=== PATIENT | female | born 2000 | race Caucasian/White ===

== ENCOUNTER 2020-12-24 01:26 | Emergency (ER) | payer OTHER, SELFPAY ==
--- NOTE | ~2020-12-24 | XR_ITS ---
EXAMINATION: XR knee RT 3V DATE: 12/24/2020 01:47 INDICATION: Right knee pain post fall TECHNIQUE: Anteroposterior, oblique and crosstable lateral views of the right knee were obtained COMPARISON: None. FINDINGS: Alignment is normal. No fracture. No joint effusion/layering lipohemarthrosis. Soft tissues are unre markable. IMPRESSION: 1. Negative right knee radiographs. Reviewed, dictated and finalized at location A. [facility] RES[facility]SE CONSULTANT
[2020-12-24 01:31] VITALS: BP 108/65; PULSE 71; RESP 16; TEMP 36.8; O2SAT 100
--- NOTE | 2020-12-24 01:48 | ED.LOWEXIN ---
HPI - Extremity Injury (Lower) General Chief Complaint: Extremity Injury, Lower Stated Complaint: rt knee pain s/p fall Time Seen by Provider: 12/24/20 01:30 Source: patient and EMS Mode of arrival: EMS Limitations: no limitations History of Present Illness HPI Narrative: 20-year-old female came into the emergency department via EMS for right knee pain. 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 Patient denies any falls or other injuries. She has not taken any medications yet. Patient is still able to move her knee but states that she does have some slight pain associated with movement. Review of Systems Review of Systems: Narrative: CONSTITUTIONAL: Denies fever, chills, or sweats. EYES: Denies visual changes, redness, or discharge. ENT: Denies rhinorrhea, congestion, sore throat, or otalgia. CARDIOVASCULAR: Denies chest pain, palpitations, or edema. RESPIRATORY: Denies cough or dyspnea. GASTROINTESTINAL: Denies abdominal pain, nausea, vomiting, or diarrhea. GENITOURINARY: Denies dysuria or hematuria. SKIN: Denies rash or itching. MUSCULOSKELETAL: Denies back pain, joint pain, or myalgia. Endorses right knee pain NEUROLOGIC: Denies headache, numbness, dizziness, or weakness. PSYCHIATRIC: Denies anxiety or depression. Exam Narrative: Exam Narrative: GENERAL: Obese, well-appearing, well-nourished, and in no acute distress. HEAD: Normocephalic, atraumatic. EYES: PERRLA and EOMI. ENT: Nares clear, no rhinorrhea or epistaxis. Mucous membranes moist. NECK: Supple. No adenopathy or masses. No carotid bruits or JVD CHEST: Clear to auscultation. No respiratory distress. No wheezes rales or rhonchi HEART: Regular rate and rhythm. No murmur heard. Normal peripheral pulses. ABDOMEN: Soft, nontender, nondistended, normal active bowel sounds. EXTREMITIES: Normal range of motion. No edema. Tenderness to palpation of the right knee SKIN: Warm, dry, no rash. NEURO: No focal deficits. Alert and oriented x3. PSYCH: Normal mood and affect. Course Vital Signs Vital signs: Vital Signs Temperature 36.8 C 02/25/21 01:31 Pulse Rate 71 12/24/20 01:31 Respiratory Rate 16 12/24/20 01:31 Blood Pressure 108/65 12/24/20 01:31 Pulse Oximetry 100 12/24/20 01:31 Temperature 36.8 C 12/24/20 01:31 Pulse Rate 71 12/24/20 01:31 Respiratory Rate 16 12/24/20 01:31 Blood Pressure 108/65 12/24/20 01:31 Pulse Oximetry 100 12/24/20 01:31 MDM - Extremity Injury (Lower) MDM Narrative Medical decision making narrative: In brief this 20-year-old female came into the emergency department with complaints of right knee pain. She had an x-ray. This was found to be within normal limits showing no fractures or dislocations. Based on the patient's history and physical exam findings I feel she likely has a sprain of the knee. Patient given an Constantino wrap and ice pack. She is given precautions to take it easy for the next couple of days and recommended that she follow-up with her primary care physician. Differential Diagnosis Differential diagnosis: Likely ankle sprain and strain, acute internal derangement of knee, fracture of femur, puncture wound of foot, fracture of toe and other (Patellar or knee dislocation) Discharge Plan Discharge Clinical Impression: Right knee sprain Qualifiers: Encounter type: initial encounter Involved ligament of knee: unspecified ligament Qualified Code(s): S83.91XA - Sprain of unspecified site of right knee, initial encounter Patient Disposition: Home, Self-Care Condition: Improved Instructions: Knee Sprain (ED) Additional Instructions: Rest ice and elevate your knee when you can. Use a brace while at work. Take acetaminophen, ibuprofen or naproxen as needed for pain relief. Follow-up/Referrals: Philip Perez DO [Physician] - Time of Disposition: 02:35
[2020-12-24] MEDS: IBUPROFEN 400 MG TABLET 800 MG PO (01:56)
--- NOTE | 2020-12-24 02:06 | PC.NURSE ---
lucy wrap applied to right knee area. pt liliana well.
[2020-12-24 02:54] VITALS: BP 112/76; PULSE 76; RESP 16; TEMP 36.8; O2SAT 100
== END 2020-12-24 02:55 | disposition home or self-care (01) ==
LOC: ANHED 02:54
PROVIDERS: Emergency Provider Emergency Medicine
DX: S83.91XA Sprain of unspecified site of right knee, initial encounter (principal); X50.9XXA Other and unspecified overexertion or strenuous movements or postures, initial encounter
CPT/HCPCS: 73562; 99283; A9270

== ENCOUNTER 2024-12-02 14:57 | Emergency (ER) | payer OTHER, MEDICAID, SELFPAY ==
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
[2024-12-02 15:18] VITALS: BP 154/79; PULSE 77; RESP 18; TEMP 36.3; O2SAT 99
--- OUTSIDE RECORDS SUMMARY | 2024-12-02 15:51 | XMS_ITS | Encounter Summary ---
Author Organization [facility] Address [address] [place] [address] Care Team Providers Care Rn Patient Care Name Role Phone Katrina Ag DO Primary Care Provider [phone] Encounter Details Date Type Department Care Team (Latest Contact Info) Description 11/08/2005 Outpatient Historical [facility] Chadwick Chen COUGH (Primary Dx) Social History Tobacco Use Types Packs/Day Years Used Date Smoking Tobacco: Never Assessed Comments Unknown Sex and Gender Information Value Date Recorded Sex Assigned at Not on file Legal Sex Female 3:23 AM [employer] Gender Identity Not on file Sexual Orientation Not on file documented as of this encounter Plan of Treatment Not on file documented as of this encounter Visit Diagnoses Diagnosis Cough- Primary documented in this encounter Additional Health Concerns Infection Onset Date Last Indicated Resolved Time R/O COVID-19 04/28/2020 04/28/2020 04/28/2020 3:00 AM CDT R/O COVID-19 09/29/2020 09/29/2020 09/30/2020 12:2 3 AM [employer] R/O COVID-19 02/11/2024 02/11/2024 02/11/2024 7:28 AM CDT documented as of this encounter Care Teams Rn Patient Care Relationship Specialty [place] [id number] [facility] [address] [place] [id number] PCP - General Internal Medicine 02/26/24 documented as of this encounter
--- OUTSIDE RECORDS SUMMARY | 2024-12-02 15:51 | XMS_ITS | Patient Health Summary ---
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 21-50(A) None Seen, 0-5 # /hpf 07/30/2018 5:22 AM CDT [facility] Bacteria UA 2+(A) None Seen 07/30/2018 5:22 AM CDT [facility] Squamous Epithelial Cells 3-5 None Seen, 0-2, 3-5 /hpf 07/30/2018 5:22 AM CDT [facility] Mucus UA 2+ /LPF 07/30/2018 5:22 AM CDT [facility] Urine URINE SPECIMEN OBTAINED BY CLEAN CATCH PROCEDURE / Unknown Collection / Unknown 07/30/2018 4:58 AM CDT 07/30/2018 5:08 AM CDT Narrative [facility] - 07/30/2018 5:22 AM CDT Larry Caro MD LAB - URINALYSIS ORD ERABLES [facility] [address] [place] [address] * (ABNORMAL) URINALYSIS REFLEX MICROSCOPIC REFLEX CULTURE (07/30/2018 4:58 AM CDT) Only the most recent of2 resultswithin the time period is included. Color UA Yellow Straw, Yellow 07/30/2018 5:16 AM CDT [facility] Clarity UA Slt Cloudy(A) Clear 07/30/2018 5:16 AM CDT [facility] Glucose UA Negative Negative 07/30/2018 5:16 AM CDT [facility] Bilirubin UA Negative Negative 07/30/2018 5:16 AM CDT [facility] Ketone UA Negative Negative 07/30/2018 5:16 AM CDT [facility] Specific [place] UA 1.026 1.005 - 1.030 07/30/2018 5:16 AM CDT [facility] Blood UA Negative Negative 07/30/2018 5:16 AM CDT [facility] pH UA 6.0 5.0 - 8.0 pH 07/30/2018 5:16 AM CDT [facility] Protein UA Negative Negative 07/30/2018 5:16 AM CDT [facility] Urobilinogen UA Negative Negative mg/dL 07/30/2018 5:16 AM CDT [facility] Nitrite UA Positive(A) Negative 07/30/2018 5:16 AM CDT [facility] Leukocyte UA 1+(A) Negative 07/30/2018 5:16 AM CDT [facility] Urine Microscopy Urine microscopy to follow 07/30/2018 5:16 AM CDT [facility] Reflex Status Culture to follow 07/30/2018 5:16 AM CDT [facility] Urine URINE SPECIMEN OBTAINED BY CLEAN CATCH PROCEDURE / Unknown Collection / Unknown 07/30/2018 4:58 AM CDT 07/30/2018 5:08 AM CDT Narrative [facility] - 07/30/2018 5:16 AM CDT Larry Caro MD LAB - URINALYSIS ORD ERABLES [facility] [address] [place] [address] * (ABNORMAL) CULTURE URINE (07/30/2018 4:58 AM CDT) Only the most recent of4 resultswithin the time period is included. Culture Urine >100,000 CFU/mL Klebsiella pneumoniae(A) GINGER 08/02/2018 8:37 AM CDT [facility] MICRO[facility]OLOG[facility] Urine URINE SPECIMEN OBTAINED BY CLEAN CATCH PROCEDURE / Unknown Collection / Unknown 07/30/2018 4:58 AM CDT 07/30/2018 5:08 AM CDT Narrative Organism Antibiotic Method Susceptibility Klebsiella pneumoniae Amikacin GINGER <=2 ug/mL: Susceptible Klebsiella pneumoniae Ampicillin-sulbactam GINGER 4 ug/mL: Susceptible Klebsiella pneumoniae Cefazolin GINGER <=4 ug/mL: Susceptible Klebsiella pneumoniae Cefepime GINGER <=1 ug/mL: Susceptible Klebsiella pneumoniae Ceftriaxone GINGER <=1 ug/mL: Susceptible Klebsiella pneumoniae Ciprofloxacin IGNGER <=0.25 ug/mL: Susceptible Klebsiella pneumoniae Extended-Spectrum Beta-Lactamase GINGER NEG ug/mL: Neg Klebsiella pneumoniae Gentamicin GINGER 8 ug/mL: Intermediate Klebsiella pneumoniae Meropenem GINGER <=0.25 ug/mL: Susceptible Klebsiella pneumoniae Nitrofurantoin GINGER 64 ug/mL: Intermediate Klebsiella pneumoniae Piperacillin-tazobactam GINGER <=4 ug/mL: Susceptible Klebsiella pneumoniae Tobramycin GINGER <=1 ug/mL: Susceptible Klebsiella pneumoniae Trimethoprim-sulfa methoxaz ole GINGER <=20 ug/mL: Susceptible Comment: Interpretive criteria are for cefazolin when cefazolin is used for therapy of uncomplicated UTI due to E. coli, K. pneumoniae, and P. mirabilis. May also be used to predict results for the oral agents cefaclor, cefdinir, cefpodoxime, cefprozil, cefuroxime, cephalexin, and lorcarbef when used to treat uncomplicated UTI due to E. coli, K. pneumoniae, and P. mirabilis. Larry Caro MD LAB - MICROBIOLOGY O RDERABLES [facility] MICROBIOLOGY [address] [place] [address], [facility] [phone] * NT-PRO BNP (07/30/2018 3:32 AM CDT) NT-proBNP 11.0 <300.0 pg/mL 07/30/2018 3:56 AM CDT [facility] Blood BLOOD SPECIMEN / Unknown Venipuncture / Unknown 07/30/2018 3:32 AM CDT 07/30/2018 3:34 AM CDT [facility] - 07/30/2018 3:56 AM CDT NT-proBNP Patient Age ? Acute HF Unlikely ? Acute HF Likely <50 years ? <300 pg/mL ? >450 pg/mL 50-75 years ?<300 pg/mL ? >900 pg/mL >75 years ? <300 pg/mL ? >1800 pg/mL Reference: MARGO Doyle et al. ICON Study. Heart Journal (2006) 27, [phone]- [phone] Both BNP and NT-proBNP derive from the precursor molecule called proBNP which is secreted from the ventricles in response to ventricle volume expansion and/or pressure overload. The secreted proBNP is subsequently cleaved by enzymes to form BNP, the active hormone and NT-proBNP an inactive metabolite. NT-proBNP has a longer half-life of 1.5-2.0 hours verses BNP with a half-life of 20 min for BNP. Both are useful biomarkers of ventricular distension due to increased intracardiac pressure. Both BNP and NT-proBNP increase with age and renal insufficiency. Increased concentrations of NT-proBNP have also been observed in the setting of acute myocardial infarction, right ventricular failure, valvular heart disease, and atrial fibrillation. Larry Caro MD LAB - CHEMISTRY ARCHIE GRIGSBY Performing Organization Address [facility] Co de Phone Number [facility] [address] [place] [address] * TROPONIN I (07/30/2018 3:32 AM CDT) [facility] Troponin I <0.015 0.000 - 0.049 ng/mL 07/30/2018 3:56 AM CDT [facility] Blood BLOOD SPECIMEN / Unknown Venipuncture / Unknown 07/30/2018 3:32 AM CDT 07/30/2018 3:34 AM CDT Narrative [facility] - 07/30/2018 3:56 AM CDT Note: Diagnosis of myocardial infarction requires symptoms of ischemia or EKG changes of ischemia and Troponin I >99th of normal (0.05 ng/mL). Troponin should be drawn on initial assessment and 3-6 hours later as clinically indicated. Any condition resulting in myocardial cell damage can increase cardiac troponin levels. In addition to myocardial infarction, these include but are not limited to congestive heart failure (CHF), arrhythmia, myocarditis, and non-cardiac related causes such as pulmonary embolism, renal failure and sepsis. Larry Caro MD LAB - CHEMISTRY ARCHIE GRIGSBY Performing Organization Address [facility] de Phone Number [facility] [address] [place] [address] * D-DIMER (07/30/2018 3:32 AM CDT) [facility] D-Dimer 0.23 0.17 - 0.5 mg/L FEU 07/30/2018 4:00 AM CDT [facility] Blood BLOOD SPECIMEN / Unknown Venipuncture / Unknown 07/30/2018 3:32 AM CDT 07/30/2018 3:34 AM CDT Narrative [facility] - 07/30/2018 4:00 AM CDT The [employer] D-Dimer assay is intended for use as an aid in diagnosis of venous thromboembolism [(VTE): deep vein thrombosis (DVT), pulmonary embolism (PE), and disseminated intravascular coagulation (DIC)], and has received U.S. Food and Drug Administration (FDA) approval to exclude VTE in patients with low or moderate pretest probability of PE or DVT (per Wells' rules). At a clinical cut-off value 0.50 mg/L FEU, the Negative Predictive Value of this assay is 99.8% for excluding PE and 100% for excluding DVT. A very low percentage of patients with VTE may yield D-Dimer results below the cut-off value. An elevated D-Dimer result has low specificity (40.4% for PE, 35.5% for DVT) and is a poor predictor of VTE. An elevated D-Dimer result may indicate DIC in the appropriate clinical setting. Results of this test should always be interpreted in conjunction with the patient's medical history, clinical presentation, and other findings. Larry Caro MD LAB - COAGULATION OR DERABLES Performing Organization Address City/State/[facility] Co de Phone Number [facility] [address] [place] [address] * (ABNORMAL) CBC W AUTO DIFFERENTIAL (07/30/2018 3:32 AM CDT) Only the most recent of6 resultswithin the time period is included. WBC 8.0 4.5 - 11.0 x10E9/L 07/30/2018 3:48 AM CDT [facility] WBC Corrected x10E9/L 07/30/2018 3:48 AM CDT [facility] RBC 4.79 4.10 - 5.10 x10E12/L 07/30/2018 3:48 AM CDT [facility] Hemoglobin 13.0 12.0 - 16.0 gm/dL 07/30/2018 3:48 AM CDT [facility] Hematocrit 39.7 36.0 - 47.0 % 07/30/2018 3:48 AM CDT [facility] MCV 82.9 78.0 - 102.0 fl 07/30/2018 3:48 AM CDT [facility] MCH 27.1 25.0 - 35.0 pg 07/30/2018 3:48 AM CDT [facility] MCHC 32.7 31.0 - 37.0 gm/dL 07/30/2018 3:48 AM CDT [facility] Platelet Count 299 100 - 400 x10E9/L 07/30/2018 3:48 AM CDT [facility] RDW-CV 13.0 11.5 - 14.0 % 07/30/2018 3:48 AM CDT [facility] MPV 9.8(H) 6.0 - 9.5 fl 07/30/2018 3:48 AM CDT [facility] Neutrophils % 59.9 31.0 - 78.0 % 07/30/2018 3:48 AM CDT [facility] Lymphocytes % 26.7 13.0 - 54.0 % 07/30/2018 3:48 AM CDT [facility] Monocytes % 10.5 4.0 - 13.0 % 07/30/2018 3:48 AM CDT [facility] Eosinophils % 2.1 0.0 - 8.0 % 07/30/2018 3:48 AM CDT [facility] Basophils % 0.4 % 07/30/2018 3:48 AM CDT [facility] Immature Granulocytes 0.4 % 07/30/2018 3:48 AM CDT [facility] Neutrophil Absolute 4.78 x10E9/L 07/30/2018 3:48 AM CDT [facility] Lymphocytes Absolute 2.13 x10E9/L 07/30/2018 3:48 AM CDT [facility] Monocytes Absolute 0.84 x10E9/L 07/30/2018 3:48 AM CDT [facility] Eosinophils Absolute 0.17 x10E9/L 07/30/2018 3:48 AM CDT [facility] Basophils Absolute 0.03 x10E9/L 07/30/2018 3:48 AM CDT [facility] Immature Granulocytes Absolute 0.03 x10E9/L 07/30/2018 3:48 AM CDT [facility] nRBC Auto 0 /100 WBC 07/30/2018 3:48 AM CDT [facility] Blood BLOOD SPECIMEN / Unknown Venipuncture / Unknown 07/30/2018 3:32 AM CDT 07/30/2018 3:34 AM CDT Larry Caro MD LAB - HEMATOLOGY ORD ERABLES [facility] [address] [place] [address] * (ABNORMAL) COMPREHENSIVE METABOLIC PANEL (07/30/2018 3:32 AM CDT) Only the most recent of6 resultswithin the time period is included. [facility] Glucose 80 74 - 106 mg/dL 07/30/2018 3:56 AM CDT [facility] Sodium 137 136 - 145 mmol/L 07/30/2018 3:56 AM CDT [facility] Potassium 3.8 3.5 - 5.1 mmol/L 07/30/2018 3:56 AM CDT [facility] Chloride 104 98 - 107 mmol/L 07/30/2018 3:56 AM CDT [facility] CO2 27 20 - 28 mmol/L 07/30/2018 3:56 AM CDT [facility] Calcium 8.4(L) 8.5 - 10.1 mg/dL 07/30/2018 3:56 AM CDT [facility] Anion Gap 6(L) 8 - 16 mmol/L 07/30/2018 3:56 AM CDT [facility] BUN 13 7 - 21 mg/dL 07/30/2018 3:56 AM CDT [facility] Creatinine 0.82 0.50 - 1.30 mg/dL 07/30/2018 3:56 AM CDT [facility] Alkaline Phosphatase 95 38 - 126 U/L 07/30/2018 3:56 AM CDT [facility] ALT 37 13 - 61 U/L 07/30/2018 3:56 AM CDT [facility] AST 25 5 - 40 U/L 07/30/2018 3:56 AM CDT [facility] Protein Total 7.3 6.4 - 8.2 gm/dL 07/30/2018 3:56 AM CDT [facility] Albumin 3.4 3.4 - 5.0 gm/dL 07/30/2018 3:56 AM CDT [facility] Bilirubin Total 1.3(H) 0.2 - 1.0 mg/dL 07/30/2018 3:56 AM CDT [facility] eGFR by MDRD >60 >60 mL/min/1.7 3m2 07/30/2018 3:56 AM CDT [facility] eGFR by MDRD >60 >60 mL/min/1.7 3m2 07/30/2018 3:56 AM CDT [facility] Blood BLOOD SPECIMEN / Unknown Venipuncture / Unknown 07/30/2018 3:32 AM CDT 07/30/2018 3:34 AM CDT Larry Caro MD [facility] Organization Address City/State/ZIP Co de Phone Number [facility] [address] [place] [address] * XR CHEST PA AND LATERAL (07/30/2018 2:55 AM CDT) Only the most recent of3 resultswithin the time period is included. Anatomical Region Laterality Modality Chest Radiographic Alfreda ging 07/30/2018 3:17 AM CDT Impressions 07/30/2018 3:17 AM CDT No acute disease in the chest. Reading Radiologist: Norman Torres MD on 07/30/2018 at 3:17 AM Narrative 07/30/2018 3:17 AM CDT CHEST - TWO VIEWS INDICATION: Chest pain, unspecified. ? . COMPARISON: November 18, 2011 FINDINGS: Frontal and lateral views of the chest show the lungs to be clear of confluent infiltrates. There are no pleural effusions. The heart size is normal. Procedure Note Norman Torres MD - 07/30/2018 CHEST - TWO VIEWS INDICATION: Chest pain, unspecified. . COMPARISON: November 18, 2011 FINDINGS: Frontal and lateral views of the chest show the lungs to be clear of confluent infiltrates. There are no pleural effusions. The heart size is normal. IMPRESSION No acute disease in the chest. Reading Radiologist: Norman Torres MD on 07/30/2018 at 3:17 AM Larry Caro MD DIAGNOSTIC IMAGING O RDERABLES * EKG 12-LEAD (07/30/2018 12:25 AM CDT) Ventricular Rate 100 BPM [facility] Atrial Rate 100 BPM [facility] P-R Interval 148 ms [facility] QRS Duration ms 90 ms [facility] Q-T Interval ms 364 ms [facility] QTC Calculation (Bezet) 469 ms [facility] Calculated P [place] 42 degrees [facility] Calculated R [place] 11 degrees [facility] Calculated T [place] 41 degrees [facility] Interpretation EKG Normal sinus rhythm Normal ECG No previous ECGs available Confirmed by BENNY LANE MD ([id number]) on 07/30/2018 11:55:03 AM [facility] 07/30/2018 12:2 5 AM CDT 07/30/2018 11:55 AM CDT Larry Caro MD ECG ORDERABLES Performing Organization Address City/[facility] Co de Phone Number [facility] * CULTURE STREP GROUP A (09/25/2017 11:40 AM CHUTE TENDER) Only the most recent of10 resultswithin the time period is included. Beta-Strep Culture, Group A Only Negative [facility] INSURANCE BILL Microbiology ENTIRE THROAT (SURFACE REGION OF NECK) / Unknown 09/25/2017 11:40 AM CHUTE TENDER 09/25/2017 Narrative Resulting Agency Comment [facility] [address] [facility] ??[facility] [phone] Fuad Love MD LAB - MICROBIOLOGY O RDERABLES Performing Organization Address City/[facility]/ZIP Co de Phone Number [facility] INSURANCE BILL [address] [place] [address] * MONONUCLEOSIS SCREEN (12/08/2016 12:32 AM CHUTE TENDER) Mononucleosis Screen Negative Negative 12/08/2016 1:18 AM CHUTE TENDER [facility] Blood BLOOD SPECIMEN / Unknown 12/08/2016 12:32 AM CHUTE TENDER 12/08/2016 12:50 AM CHUTE TENDER Kandi Pollack MD LAB - CHEMISTRY ORD ERABLES [facility] [address] [place] [address] * (ABNORMAL) DIFFERENTIAL MANUAL (12/08/2016 12:30 AM [facility]) WBC Auto 13.1 x10E9/L 12/08/2016 2:03 AM [facility] WBC Corrected 4.5 - 14.5 x10E9/L 12/08/2016 2:03 AM [facility] nRBC /100 WBC 12/08/2016 2:03 AM [facility] Neutrophil % Manual 89(H) 24 - 66 % 12/08/2016 2:03 AM [facility] Lymphocytes % Manual 6(L) 22 - 61 % 12/08/2016 2:03 AM [facility] Monocytes % Manual 4 3 - 15 % 12/08/2016 2:03 AM [facility] Basophils % Manual 1 % 12/08/2016 2:03 AM [facility] Cells Counted 100 # cells 12/08/2016 2:03 AM [facility] Platelet Estimation Adequate platelets Normal, Adequate platelets 12/08/2016 2:03 AM [facility] WBC Morph Normal 12/08/2016 2:03 AM [facility] Anisocytosis 1+(A) None 12/08/2016 2:03 AM [facility] Poikilocytosis 1+(A) None 12/08/2016 2:03 AM [facility] Blood BLOOD SPECIMEN / Unknown 12/08/2016 12:30 AM CHUTE TENDER 12/08/2016 12:40 AM [facility] Kandi Pollack MD LAB - HEMATOLOGY OR DERABLES Performing Organization Address City/State/[facility] Co de Phone Number [facility] [address] [place] [address] * INFLUENZA A+B ANTIGEN RAPID (12/08/2016 12:27 AM [facility]) Pathologist [facility] Influenza A Antigen Negative Negative 12/08/2016 12:49 AM [facility] Influenza B Antigen Negative Negative 12/08/2016 12:49 AM [facility] Microbiology NASOPHARYNGEAL SWAB / Unknown 12/08/2016 12:27 AM CHUTE TENDER 12/08/2016 12:34 AM [facility] Narrative [facility] - 12/08/2016 12:49 AM CHUTE TENDER ? The sensitivity of rapid tests for influenza A and B antigens, according to the published reports , ranges from 30-70% when compared to PCR and viral culture. For H1N1 influenza A, the sensitivity varies from 30-50%. For other influenza A strains, the sensitivity ranges from 50-70%. For influenza B virus, the sensitivity is approximately 30%. A negative result does not exclude influenza infection. ? False-positive (and true-negative) influenza test results are more likely to occur when disease prevalence is low, which is generally at the beginning and end of the influenza season. False-negative (and true-positive) influenza test results are more likely to occur when disease prevalence is high, which is typically at the height of the influenza season. Kandi Pollack MD LAB - MICROBIOLOGY ORDERABLES Performing Organization Address City/State/[facility] Co de Phone Number [facility] [address] [place] [phone] * (ABNORMAL) URINALYSIS ROUTINE AUTO (12/08/2016 12:26 AM [facility]) Color UA Yellow Straw, Yellow, Dark Yellow 12/08/2016 12:55 AM [facility] Clarity UA Slt Cloudy 12/08/2016 12:55 AM [facility] Specific [place] UA 1.025 1.005 - 1.030 12/08/2016 12:55 AM [facility] pH UA 5.5 5.0 - 8.0 pH 12/08/2016 12:55 AM [facility] Protein UA Negative Negative 12/08/2016 12:55 AM [facility] Blood UA Trace(A) Negative 12/08/2016 12:55 AM [facility] Leukocyte UA 1+(A) Negative 12/08/2016 12:55 AM [facility] Nitrite UA Negative Negative 12/08/2016 12:55 AM [facility] Glucose UA Negative Negative 12/08/2016 12:55 AM [facility] Ketone UA Negative Negative 12/08/2016 12:55 AM [facility] Bilirubin UA Negative Negative 12/08/2016 12:55 AM [facility] Urobilinogen UA 0.2 0.1 - 1.0 EU/dL 12/08/2016 12:55 AM CHUTE TENDER [facility] Urine URINE SPECIMEN OBTAINED BY CLEAN CATCH PROCEDURE / Unknown 12/08/2016 12:26 AM CHUTE TENDER 12/08/2016 12:39 AM CHUTE TENDER Kandi Pollack MD LAB - URINALYSIS OR DERABLES Performing Organization Address [facility] de Phone Number [facility] [address] [place] [phone] * (ABNORMAL) URINALYSIS MICROSCOPIC ONLY (12/08/2016 12:26 AM CHUTE TENDER) RBC UA 2-5 0-2, 2-5 # /hpf 12/08/2016 1:51 AM [facility] WBC UA 2-5 0-2, 2-5 # /hpf 12/08/2016 1:51 AM [facility] Bacteria UA 1+(A) None Seen, Trace 12/08/2016 1:51 AM [facility] Epithelial Cell UA 2-5 0-2, 2-5 # /hpf 12/08/2016 1:51 AM [facility] Mucus UA 1+ 12/08/2016 1:51 AM [facility] Urine URINE SPECIMEN OBTAINED BY CLEAN CATCH PROCEDURE / Unknown 12/08/2016 12:26 AM CHUTE TENDER 12/08/2016 12:39 AM CHUTE TENDER Kandi Pollack MD LAB - URINALYSIS OR DERABLES Performing Organization Address [facility] Co de Phone Number [facility] [address] [place] [phone] * HCG URINE QUALITATIVE - POCT (IP) BEAKER (12/08/2016 12:19 AM CHUTE TENDER) HCG Qual Urine Negative Negative [facility] POCT TESTING QC Verified Yes Yes [facility] PO CT TESTING Urine URINE / Unknown 12/08/2016 1 2:19 AM CHUTE TENDER Kandi Pollack MD LAB - POINT OF CARE ORDERABLES Performing Organization Address City/[facility] Co de Phone Number [facility] POCT TESTING [place] [address], [facility] [phone] * THYROID PANEL W TSH (03/09/2015 4:58 PM CDT) Only the most recent of2 resultswithin the time period is included. TSH 1.540 0.450 - 4.500 uIU/mL [facility] ACCOUNT BILL T4 Total 8.1 4.5 - 12.0 ug/dL [facility] ACCOUNT BILL T3 Uptake 27 23 - 37 % [facility] ACCOUNT BILL Free Thyroxine Index 2.2 1.2 - 4.9 [facility] ACCOUNT BILL Blood specimen (specimen) BLOOD SPECIMEN / Unknown 03/09/2015 4:58 PM CDT 03/09/2015 7:01 PM CDT Narrative Resulting Agency Comment [facility] [address] ??[facility] [id number] Joya Xie MD LAB - CHEMISTRY ARCHIE GRIGSBY Performing Organization Address City/[facility]/ZIP Co de Phone Number [facility] ACCOUNT BILL * RHEUMATOID FACTOR BLOOD QUANTITATIVE (03/09/2015 4:58 PM CDT) Rheumatoid Factor 5.3 0.0 - 13.9 IU/mL [facility] ACCOUNT BILL Blood specimen (specimen) BLOOD SPECIMEN / Unknown 03/09/2015 4:58 PM CDT 03/09/2015 7:01 PM CDT Narrative Resulting Agency Comment [facility] ??[facility] [phone] Joya Xie MD LAB - CHEMISTRY ARCHIE GRIGSBY [facility] ACCOUNT BILL * MATHEW BLOOD SCREEN W/REFLEX TITER (03/09/2015 4:58 PM CDT) MATHEW Negative [facility] ACCOUNT BILL Comment: ?Negative ?? <1:80 ?Borderline ??1:80 ?Positive ?? >1:80 Blood specimen (specimen) BLOOD SPECIMEN / Unknown 03/09/2015 4:58 PM CDT 03/09/2015 7:01 PM CDT Narrative Resulting Agency Comment [facility] [place] [address] ??[place] [phone] Joya Xie MD LAB - CHEMISTRY ARCHIE GRIGSBY Performing Organization Address [facility]/[place] [facility] de Phone Number [facility] ACCOUNT BILL * HEMOGLOBIN A1C (03/09/2015 4:58 PM CDT) Only the most recent of3 resultswithin the time period is included. Hemoglobin A1c 5.1 4.8 - 5.6 % [facility] ACCOUNT BILL Comment: ? . ? Increased risk for diabetes: 5.7 - 6.4 ? Diabetes: >6.4 ? Glycemic control for adults with diabetes: <7.0 Whole blood specimen (specimen) BLOOD SPECIMEN WITH EDTA / Unknown 03/09/2015 4:58 PM CDT 03/09/2015 7:01 PM CDT Narrative Resulting Agency Comment [facility] [place] [address] ??[place] [phone] Joya Xie MD LAB - CHEMISTRY ARCHIE GRIGSBY [facility] ACCOUNT BILL * (ABNORMAL) VITAMIN D 25-HYDROXY (03/09/2015 4:58 PM CDT) Only the most recent of3 resultswithin the time period is included. Vitamin D, 25 Hydroxy 12.7(L) 30.0 - 100.0 ng/mL [facility] ACCOUNT BILL Comment: Vitamin D deficiency has been defined by the [place] of Medicine and an Endocrine Society practice guideline as a level of serum 25-OH vitamin D less than 20 ng/mL (1,2). The Endocrine Society went on to further define vitamin D insufficiency as a level between 21 and 29 ng/mL (2). 1. IOM ([place] of Medicine). 2010. Dietary reference ?? intakes for calcium and D. [place]: The ?? National [employer]. 2. [place] MCDONALD, Otis DAHL, Gabrielle JONES, et al. ?? Evaluation, treatment, and prevention of vitamin D ?? deficiency: an Endocrine Society clinical practice ?? guideline. JCEM. 2010; 96(7):1911-30. Blood specimen (specimen) BLOOD SPECIMEN / Unknown 03/09/2015 4:58 PM CDT 03/09/2015 7:01 PM CDT Narrative Resulting Agency Comment [facility] [address] ??[facility] [phone] Joya Xie MD LAB - CHEMISTRY ARCHIE GRIGSBY [facility] ACCOUNT BILL * (ABNORMAL) LIPID PROFILE (03/09/2015 4:58 PM CDT) Only the most recent of4 resultswithin the time period is included. Cholesterol 139 100 - 169 mg/dL [facility] ACCOUNT BILL Triglycerides 163(H) 0 - 89 mg/dL [facility] ACCOUNT BILL HDL Cholesterol 32(L) >39 mg/dL [facility] ACCOUNT BILL Comment: According to ATP-III Guidelines, HDL-C >59 mg/dL is considered a negative risk factor for CHD. VLDL Calculated 33 5 - 40 mg/dL [facility] ACCOUNT BILL LDL Calculated 74 0 - 109 mg/dL [facility] ACCOUNT BILL Comment NOT NEEDED [facility] ACCOUNT BILL Comment:Ancillary determined the test is not needed Blood specimen (specimen) BLOOD SPECIMEN / Unknown 03/09/2015 4:58 PM CDT 03/09/2015 7:01 PM CDT Narrative Resulting Agency Comment [facility] [place] [address] ??[place] [phone] Joya Xie MD LAB - CHEMISTRY ARCHIE GRIGSBY [facility] ACCOUNT BILL * JOSEPH-BAR VIRUS PANEL (03/09/2015 4:57 PM CDT) Joseph-Terrazas Viral Capsid Antigen Antibody IgM <36.0 0.0 - 35.9 U/mL [facility] ACCOUNT BILL Comment: ?Negative ?<36.0 ?Equivocal 36.0 - 43.9 ?Positive ?>43.9 Joseph-Terrazas Virus Early Antigen Antibody IgG <9.0 0.0 - 8.9 U/mL [facility] ACCOUNT BILL Comment: ?Negative ?< 9.0 ?Equivocal ??9.0 - 10.9 ?Positive ?>10.9 Joseph-Terrazas Viral Capsid Antigen Antibody IgG <18.0 0.0 - 17.9 U/mL [facility] ACCOUNT BILL Comment: ?Negative ?<18.0 ?Equivocal 18.0 - 21.9 ?Positive ?>21.9 Joseph-Terrazas Virus Antibody IgG Nuclear Antigen <18.0 0.0 - 17.9 U/mL [facility] ACCOUNT BILL Comment: ?Negative ?<18.0 ?Equivocal 18.0 - 21.9 ?Positive ?>21.9 Interpretation [facility] ACCOUNT BILL Comment: ?EBV Interpretation Chart ?. ? Interpretation ?? EBV-IgM ??EA(D)-IgG ??VCA-IgG ??EBNA-IgG ?. ? EBV Seronegative ?- ?- ? - ?- ? Early Phase ? + ?- ? - ?- ? Acute Primary ? + ? +or- ? + ?- ? Infection ? Convalescence/Past ??- ? +or- ? + ?+ ? Infection ? Reactivated ?+or- ?+ ? + ?+ ? Infection ?+ Antibody Present ?- Antibody Absent Blood specimen (specimen) BLOOD SPECIMEN / Unknown 03/09/2015 4:57 PM CDT 03/09/2015 7:01 PM CDT Narrative Resulting Agency Comment [facility] [place] [address] ??[place] [phone] Joya Xie MD LAB - CHEMISTRY ARCHIE GRIGSBY [facility] ACCOUNT BILL * MONONUCLEOSIS SCREEN - POINT OF CARE (03/05/2015) Only the most recent of2 resultswithin the time period is included. Mononucleosis Screen POCT Negative NEGATIVE Divide Test Internal Control Divide Test Lot# Divide Test Exp Date BLOOD SPECIMEN / Unknown 03/05/2015 Joya Xie MD LAB - POINT OF CARE ORDERABLES * ALLERGEN RESPIRATORY PROFILE R8 ([place]) (06/06/2013 8:23 AM CDT) Class Description Blood [facility] ACCOUNT BILL Comment: ?Levels of Specific IgE ? Class ??Description of Class ?----- ?<0.08 ? 0 ? Negative ? 0.08 - ?0.15 ? I ? 0.16 - ?0.50 ? II ?Increasing ? 0.51 - ?2.50 ? III ? levels ? 2.51 - ?? 12.50 ? IV ?of ?12.51 - ?? 62.50 ? V ?Specific IgE ?62.51 - >100.00 ? Antibody Allergen Dermatophagoides pteronyssinus <0.08 Class 0 kU/L [facility] ACCOUNT BILL Allergen Dermatophagoides farinae <0.08 Class 0 kU/L [facility] ACCOUNT BILL Allergen Cat Dander <0.08 Class 0 kU/L [facility] ACCOUNT BILL Allergen Dog Epithelium <0.08 Class 0 kU/L [facility] ACCOUNT BILL Allergen Bermuda Grass <0.08 Class 0 kU/L [facility] ACCOUNT BILL Allergen Krystal Grass <0.08 Class 0 kU/L [facility] ACCOUNT BILL Allergen Salvador Grass <0.08 Class 0 kU/L [facility] ACCOUNT BILL Allergen Cockroach Guamanian <0.08 Class 0 kU/L [facility] ACCOUNT BILL Allergen P. Notatum <0.08 Class 0 kU/L [facility] ACCOUNT BILL Allergen C Herbarum <0.08 Class 0 kU/L [facility] ACCOUNT BILL Allergen Aspergillus fumigatus <0.08 Class 0 kU/L [facility] ACCOUNT BILL Allergen Mucor racemosus <0.08 Class 0 kU/L [facility] ACCOUNT BILL Allergen A Tenuis <0.08 Class 0 kU/L [facility] ACCOUNT BILL Allergen Stemphylium botryosum <0.08 Class 0 kU/L [facility] ACCOUNT BILL Allergen [place] <0.08 Class 0 kU/L [facility] ACCOUNT BILL Allergen Elm <0.08 Class 0 kU/L [facility] ACCOUNT BILL Allergen Maple <0.08 Class 0 kU/L [facility] ACCOUNT BILL Allergen White Kendall <0.08 Class 0 kU/L [facility] ACCOUNT BILL Allergen Guamanian [place] <0.08 Class 0 kU/L [facility] ACCOUNT BILL Allergen White [place] <0.08 Class 0 kU/L [facility] ACCOUNT BILL Allergen Mountain Le[place]anau <0.08 Class 0 kU/L [facility] ACCOUNT BILL Allergen Short/Common Ragweed <0.08 Class 0 kU/L [facility] ACCOUNT BILL Allergen [place]an Plantain <0.08 Class 0 kU/L [facility] ACCOUNT BILL Allergen [place] Thistle <0.08 Class 0 kU/L [facility] ACCOUNT BILL Allergen Rough Pigweed <0.08 Class 0 kU/L [facility] ACCOUNT BILL Allergen Sheep [place] <0.08 Class 0 kU/L [facility] ACCOUNT BILL Allergen Neetle <0.08 Class 0 kU/L [facility] ACCOUNT BILL Blood specimen (specimen) BLOOD SPECIMEN / Unknown 06/06/2013 8:23 AM CDT 06/06/2013 12:29 PM CDT Narrative [facility] ACCOUNT BILL - 06/10/2013 12:15 PM CDT Test(s) [id number] Kendall, White; [id number]- [id number]-EvP White [place]; [id number] Pigweed, Rough; [id number]- [id number] Sheep [place](Dock); [id number] Nettle were developed and had performance characteristics determined by [facility]. These tests have not been cleared or approved by the U.S. Food and Drug Administration. The FDA has determined that such clearance or approval is not necessary. These tests are used for clinical purposes. These should not be regarded as investigational or for research. Resulting Agency Comment [facility] [address] ??[facility] [phone] Joya Xie MD LAB - CHEMISTRY ARCHIE GRIGSBY [facility] ACCOUNT BILL * C-REACTIVE PROTEIN (CRP) (01/01/2013 8:37 AM CHUTE TENDER) C-Reactive Protein 2.8 0.0 - 4.9 mg/L [facility] ACCOUNT BILL Blood specimen (specimen) BLOOD SPECIMEN / Unknown 01/01/2013 8:37 AM CHUTE TENDER 01/01/2013 11:46 AM CHUTE TENDER Narrative Resulting Agency Comment [facility] [address] ??[facility] [phone] Joya Xie MD LAB - CHEMISTRY ARCHIE GRIGSBY Performing Organization Address City/[facility]/ZIP Co de Phone Number [facility] ACCOUNT BILL * (ABNORMAL) TSH+FREE T4 (PO REF LAB) (10/26/2011 8:21 AM CHUTE TENDER) TSH 2.480 0.450 - 4.500 uIU/mL [facility] ACCOUNT BILL T4 Free 0.88(L) 0.93 - 1.60 ng/dL [facility] ACCOUNT BILL BLOOD SPECIMEN / Unknown 10/26/2011 8:21 AM CHUTE TENDER 10/26/2011 12:58 PM CHUTE TENDER Narrative [facility] ACCOUNT BILL - 11/03/2011 2:22 PM CHUTE TENDER A courtesy copy of this report has been sent to [phone]. Resulting Agency Comment [facility] [address] ??[facility] [phone] Joya Xie MD LAB - CHEMISTRY ARCHIE GRIGSBY Performing Organization Address [facility] Co de Phone Number [facility] ACCOUNT BILL * HYDROXYPREGNENOLONE 17- (10/26/2011 8:21 AM CHUTE TENDER) Only the most recent of3 resultswithin the time period is included. 17-Hydroxypregn enolone 171 ng/dL [facility] ACCOUNT BILL Comment: Verified by repeat analysis. Reference Range: Pubertal: 44 - 235 BLOOD SPECIMEN / Unknown 10/26/2011 8:21 AM CHUTE TENDER 10/26/2011 12:58 PM CHUTE TENDER Narrative [facility] ACCOUNT BILL - 11/03/2011 2:22 PM CHUTE TENDER A courtesy copy of this report has been sent to [phone]. Resulting Agency Comment [facility] [address] [facility] ??[facility] [phone] Joya Xie MD LAB - CHEMISTRY ARCHIE GRIGSBY Performing Organization Address City/[facility]/ZIP Co de Phone Number [facility] ACCOUNT BILL * HYDROXYPROGESTERONE 17- (10/26/2011 8:21 AM CHUTE TENDER) [facility] 19 ng/dL [facility] ACCOUNT BILL Comment: ? Juice Stage ?Female ? 1 ? 0 - ??82 ? 2 ?11 - ??98 ? 3 ?11 - 155 ? 4 ?18 - 230 ? 5 ?20 265 Blood specimen (specimen) BLOOD SPECIMEN / Unknown 10/26/2011 8:21 AM CHUTE TENDER 10/26/2011 12:58 PM CHUTE TENDER Narrative [facility] ACCOUNT BILL - 11/03/2011 2:22 PM CHUTE TENDER A courtesy copy of this report has been sent to [phone]. Resulting Agency Comment [facility] [place] [address] [place] [address] Court ??[facility] [phone] Joya Xie MD LAB - CHEMISTRY ARCHIE ROXANNAVENKAT [facility] ACCOUNT BILL * BASIC METABOLIC PANEL (CALCIUM IONIZED) (09/14/2011 3:30 PM CHUTE TENDER) Pathologist [facility] Glucose 99 70 - 110 mg/dL [facility] BUN 10 7 - 21.0 mg/dL [facility] Creatinine 0.7 0.5 - 1.3 mg/dL [facility] Sodium 142 136 - 145 mmol/L [facility] Potassium 3.7 3.5 - 5.1 mmol/L [facility] Chloride 105 98 - 107 mmol/L [facility] CO2 24 22 - 30 mmol/L [facility] Anion Gap 17 [facility] Calcium Ionized 1.15 1.10 - 1.35 mmol/L [facility] eGFR by MDRD >60 Ref Range NA <18 yoa ml/min/1.7 3 m2 [facility] BLOOD SPECIMEN SUBMITTED IN HEPARINIZED COLLECTION TUBE / Unknown 09/14/2011 3:30 PM CHUTE TENDER 09/14/2011 3:34 PM CHUTE TENDER Martin Mars MD LAB - CHEMISTRY ARCHIE GRIGSBY [facility] [address] [place] [address] * XR ABD OBSTR SERIES W/PA CHEST (09/14/2011 2:46 PM CHUTE TENDER) Anatomical Region Laterality Modality Abdomen Radiographic Alfreda ging 09/14/2011 4:28 PM CHUTE TENDER Impressions 09/14/2011 4:28 PM CHUTE TENDER 1. ??Scattered mild air-fluid levels, with normal caliber large and small bowel, most suggestive of a mild ileus. Retained stool seen in the right colon and cecum. As clinically indicated, repeat obstructive series can be done to confirm stability. 2. ??Negative for focal mass effect, mural thickening, or free air. 3. ??No acute pleural parenchymal changes. Report was finalized at the time of the patient's ER visit. Narrative 09/14/2011 4:28 PM CHUTE TENDER X-RAY, OBSTRUCTIVE SERIES WITH CXR HISTORY: Abdominal pain TECHNIQUE: ??3 views of the abdomen, including upright and CXR are submitted. FINDINGS: ??Air is seen in normal caliber large and small bowel. ??There are a few scattered air-fluid levels in the upper quadrants, with no mural thickening, pneumatosis, or free air. Retained stool seen in right colon and cecum No focal mass effect is seen. Bony structures are intact. The lung parenchyma is clear. ??Mediastinal and cardiac contours are normal. No perihilar cuffing is present. No pleural effusion or pneumothorax is present. Procedure Note Aishwarya Tijerina MD - 09/14/2011 X-RAY, OBSTRUCTIVE SERIES WITH CXR HISTORY: Abdominal pain TECHNIQUE: 3 views of the abdomen, including upright and CXR are submitted. FINDINGS: Air is seen in normal caliber large and small bowel. There are a few scattered air-fluid levels in the upper quadrants, with no mural thickening, pneumatosis, or free air. Retained stool seen in right colon and cecum No focal mass effect is seen. Bony structures are intact. The lung parenchyma is clear. Mediastinal and cardiac contours are normal. No perihilar cuffing is present. No pleural effusion or pneumothorax is present. IMPRESSION 1. Scattered mild air-fluid levels, with normal caliber large and small bowel, most suggestive of a mild ileus. Retained stool seen in the right colon and cecum. As clinically indicated, repeat obstructive series can be done to confirm stability. 2. Negative for focal mass effect, mural thickening, or free air. 3. No acute pleural parenchymal changes. Report was finalized at the time of the patient's ER visit. Martin Mars MD DIAGNOSTIC IMAGING O RDERABLES * DRUG SCREEN URINE ABUSE INHOUSE (09/14/2011 2:03 PM CHUTE TENDER) Cannabinoids Screen Urine Not Detected 50 ng/mL [facility] Phencyclidine Screen Urine Not Detected 25 ng/mL cutoff [facility] Cocaine Screen Urine Not Detected 150 ng/mL [facility] Methamphetamine Screen Urine Not Detected 500 ng/mL Cut[facility] Opiate Screen Urine Detected 2000 ng/mL Cut[facility] Amphetamines Screen Urine Not Detected 500 ng/mL Cutoff [facility] Benzodiazepines Screen Urine Not Detected 150 ng/mL Cutoff [facility] Tricyclics Screen Urine Not Detected 300 ng/mL Cutoff [facility] Methadone Screen Urine Not Detected 200 ng/mL Cutoff [facility] Barbiturates Screen Urine Not Detected 200 ng/mL Cutoff [facility] Oxycodone Screen Urine Not Detected 100 ng/mL Cutoff [facility] Propoxyphene Screen Urine Not Detected 300 ng/mL Cutoff [facility] Legal Disclaimer Urine This drug screen is designed for MEDICAL purposes only. It is not to be used for legal purposes including but not limited to workman's comp, police investigations, occupational issues, child custody. [facility] URINE / Unknown 09/14/2011 2 :03 PM CHUTE TENDER 09/14/2011 2:05 PM CHUTE TENDER Martin Mars MD LAB - URINE CHEMISTR Y ORDERABLES Performing Organization Address City/[facility]/ZIP Co de Phone Number [facility] [address] [phone] * HCG URINE QUALITATIVE - POINT OF CARE (09/14/2011 1:45 PM CHUTE TENDER) HCG Qual Urine neg Negative [facility] POCT TESTING QC Verified yes Yes [facility] PO CT TESTING Urine specimen (specimen) URINE / Unknown 09/14/2011 1:45 PM CHUTE TENDER Martin Mars MD LAB - POINT OF CARE ORDERABLES Performing Organization Address [facility]/ZIP Co de Phone Number [facility] POCT TESTING * (ABNORMAL) URINALYSIS - POINT OF CARE (09/10/2011 12:09 PM CHUTE TENDER) Only the most recent of3 resultswithin the time period is included. Clarity UA POCT Color UA POCT Leukocyte UA Trace Negative Nitrite UA POCT neg Negative Urobilinogen UA POCT neg 0.1 - 1.0 EU/dL Protein UA POCT neg Negative pH UA 6.0 5.0 - 8.0 pH units Blood UA neg Negative Specific [place] UA POCT 1.020 1.002 - 1.030 Ketone UA neg Negative Bilirubin UA POCT neg Negative Glucose UA neg Negative Urine specimen (specimen) URINE / Unknown Joya Xie MD LAB - POINT OF CARE ORDERABLES * TESTOSTERONE TOTAL (05/20/2009 8:27 AM CDT) Testosterone 16 0 - 30 ng/dL [facility] ACCOUNT BILL 05/20/2009 8:27 AM CDT 05/20/2009 10:41 PM CDT Narrative Resulting Agency Comment [facility] [address] ??[facility] [phone] Joya Xie MD LAB - CHEMISTRY ARCHIE GRIGSBY [facility] ACCOUNT BILL * FSH + LH PANEL (05/20/2009 8:27 AM CDT) LH <0.3 0.0 - 0.5 mIU/mL [facility] ACCOUNT BILL Comment: ?Age ?Male ?Female ?0- ??1 yr. ?? 0.5 - ??1.9 ?? 0.0 - ??0.5 ?2- ??5 yrs. ??0.0 - ??0.5 ?? 0.0 - ??0.5 ?6- 10 yrs. ??0.0 - ??0.5 ?? 0.0 - ??0.5 ? 11- 19 yrs. ??0.5 - ??5.3 ?? 0.5 - ??9.0 ? 20- 69 yrs. ??1.5 - ??9.3 ?? 0.0 - 76.3 ? 70-100 yrs. ??3.1 - 34.6 ?? 5.0 - 52.3 ? Female ? Follicular ?1.9 - 12.5 ? Midcycle ?8.7 - 76.3 ? Luteal ?0.5 - 16.9 ?0.0 - ??1.5 ? Postmenopausal ? 15.9 - 54.0 ? Contraceptives ?0.7 - ??5.6 FSH 0.4 0.4 - 5.0 mIU/mL [facility] ACCOUNT BILL Comment: ? Age ?Male ?Female ?5th day ?? <0.2 - ??4.6 ??<0.2 - ?? 4.6 ?2 mo- 3 yrs. ?? 0.2 - ??2.7 ?? 1.4 - ?? 9.2 ? 4- 6 yrs. ?? 0.2 - ??2.7 ?? 0.4 - ?? 6.6 ? 7- 9 yrs. ?? 0.2 - ??2.7 ?? 0.4 - ?? 5.0 ?10-11 yrs. ?? 0.4 - ??5.0 ?? Not Estab ?12-13 yrs. ?? 0.4 - ??6.6 ?? Not Estab ?14-15 yrs. ?? 0.7 - 13.2 ?? Not Estab ? >15 yrs. ?1.4 - 18.1 ?? See Below ? Female ?Follicular ?2.5 - ??10.2 ?Midcycle ?3.4 - ??33.4 ?Luteal ?1.5 - ?? 9.1 ? <0.2 ?Postmenopausal ? 23.0 - 116.3 05/20/2009 8:27 AM CDT 05/20/2009 10:41 PM CDT Narrative Resulting Agency Comment [facility] [place] [address] ??[place] [phone] Joya Xie MD LAB - CHEMISTRY ARCHIE GRIGSBY [facility] ACCOUNT BILL * CORTISOL BLOOD AM (05/20/2009 8:27 AM CDT) Cortisol AM 18.5 4.3 - 22.4 ug/dL [facility] ACCOUNT BILL 05/20/2009 8:27 AM CDT 05/20/2009 10:41 PM CDT Narrative Resulting Agency Comment [facility] [place] [address] ??[facility] [phone] Joya Xie MD LAB - CHEMISTRY ARCHIE GRIGSBY [facility] ACCOUNT BILL * XR BONE AGE HAND AND WRIST (01/26/2009) Anatomical Region Laterality Modality Upper Extremity, Wrist / Hand Ot her Joya Xie MD DIAGNOSTIC IMAGING O RDERABLES * TSH (09/02/2008 7:45 AM CHUTE TENDER) TSH 3.450 0.360 - 5.800 uIU/mL [facility] ACCOUNT BILL BLOOD SPECIMEN / Unknown 09/02/2008 7:45 AM CHUTE TENDER 09/02/2008 10:43 PM CHUTE TENDER Narrative Resulting Agency Comment [facility] [place] [address] ??[facility] [phone] Joya Xie MD LAB - CHEMISTRY ARCHIE GRIGSBY Performing Organization Address City/[facility] Co de Phone Number [facility] ACCOUNT BILL * T4 FREE (09/02/2008 7:45 AM CHUTE TENDER) T4 Free 1.25 0.82 - 1.58 ng/dL [facility] ACCOUNT BILL BLOOD SPECIMEN / Unknown 09/02/2008 7:45 AM CHUTE TENDER 09/02/2008 10:43 PM CHUTE TENDER Narrative Resulting Agency Comment [facility] [place] [address] ??[facility] [phone] Joya Xie MD LAB - CHEMISTRY ARCHIE GRIGSBY Performing Organization Address City/[facility]/ZIP Co de Phone Number [facility] ACCOUNT BILL * BORDETELLA PERTUSSIS PCR PANEL (08/28/2008 12:01 PM CDT) Bordetella pertussis DNA SECTION HOUSEKEEPER Swab Negative Negative [facility] INSURANCE BILL Bordetella parapertussis DNA PCR SECTION HOUSEKEEPER Swab Negative Negative [facility] INSURANCE BILL Comment: ? . This test was developed and its performance characteristics determined by [facility]. It has not been cleared or approved by the U.S. Food and Drug Administration. The FDA has determined that such clearance or approval is not necessary. This test is used for clinical purposes. It should not be regarded as investigational or research. NASOPHARYNGEAL SWAB / Unknown 08/28/2008 12:01 PM CDT 09/01/2008 5:11 PM CHUTE TENDER Narrative Resulting Agency Comment [employer] [address] ??[facility] [phone] Joya Xie MD LAB - MICROBIOLOGY O SAUL [facility] INSURANCE BILL * HIPS BILATERAL TWO VIEW WITH AP PELVIS RV (04/06/2008 11:12 PM CDT) Anatomical Region Laterality Modality Pelvis, Lower Extremity [facility] 04/07/2008 8:00 AM CDT Impressions 04/07/2008 8:02 AM CDT Impression: Negative examination. Narrative 04/07/2008 8:02 AM CDT HISTORY: Fell 5-6 days ago at school. Pelvis AP and both hips 2 views each. Findings: The bones are anatomically aligned. There is no fracture or dislocation. The joints are normal. Procedure Note Deonte Toussaint MD - 04/07/2008 HISTORY: Fell 5-6 days ago at school. Pelvis AP and both hips 2 views each. Findings: The bones are anatomically aligned. There is no fracture or dislocation. The joints are normal. IMPRESSION Impression: Negative examination. Josh Lake MD DIAGNOSTIC IMAGING O SAUL * XR KNEE 1 OR 2 VW LEFT (04/06/2008 11:12 PM CDT) Anatomical Region Laterality Modality Lower Extremity Radiographic Alfreda ging 04/07/2008 7:59 AM CDT Impressions 04/07/2008 8:01 AM CDT Impression: Negative examination. Narrative 04/07/2008 8:01 AM CDT History: Pain in the left knee since yesterday. Patient fell 5 to 6 days ago at school. Left knee AP lateral views. Findings: The bones are anatomically aligned. There is no fracture or dislocation. The joints are normal. Procedure Note Deonte Toussaint MD - 04/07/2008 History: Pain in the left knee since yesterday. Patient fell 5 to 6 days ago at school. Left knee AP lateral views. Findings: The bones are anatomically aligned. There is no fracture or dislocation. The joints are normal. IMPRESSION Impression: Negative examination. Josh Lake MD DIAGNOSTIC IMAGING O SAUL
--- OUTSIDE RECORDS SUMMARY | 2024-12-02 15:51 | XMS_ITS | Clinical Summary ---
Author Organization [facility] [employer] Address [address] [place] [address] Care Team Providers Care Fisherman Helper Name Role Phone Unavailable Primary Care Provider Unavailabl e Source Comments [facility] [employer],non-owned Affiliates and Associated Physician Practices is amultiple site organization consisting of ambulatory clinics and hospital sitesin [place], [place], [place] and [place]. This disclosure is being madepursuant to the Care Everywhere program and may not contain all information available regarding this patient. Last updated 18.[facility] [employer] Allergies Active Allergy Reactions Criticality Noted Date Comments Adhesive Sensitivity Itching 12/05/2016 Eimkgfnj-Jiicrrkmrm-Eihjrsngz Rash Low 2009 Omnicef Urticaria,Swelling 04/06/2008 hives Cefdinir 09/14/2011 Medications * Be aware that medications may not be up to date on this document. Alwaysverify current medications with the patient. Medication Sig Dispensed Refills Start Date End Date Status rizatriptan, disintegrating, (MAXALT-WEATHER ALGORITHM SCIENTIST) 10 MG tablet Take 1 tab at onset of migraine. Repeat in 2 hours if needed. Max 2 tabs per day 14 Tab 12/05/2016 Active Additional Information Patient not taking.Reported on 01/14/2020 metFORMIN (GLUCOPHAGE) 850 MG tablet Reported on 01/09/2017 11/01/2016 Active albuterol HFA (PROVENTIL;VENTOLIN ;PROAIR) 108 (90 BASE) MCG/ACT inhalerIndications: Asthma Inhale 2 Puffs by mouth every 6 hours as needed for Shortness of Breath, Wheezing or Cough Reasons: Asthma 1 Inhaler 1 04/01/2017 Active Additional Information Patient not taking.Reported on 01/14/2020 ondansetron, disintegrating, (ZOFRAN ODT) 4 MG tablet Take 1 tablet by mouth every 8 hours as needed for Nausea/Vomiting Allow tablet to dissolve on the tongue 6 tablet 02/03/2020 Active lidocaine (Lidoderm) 5 % patch Apply 1 (one) patch to skin once daily Apply patch to most painful area and remove after 12 hours. May reapply a new patch 12 hours later. 15 patch 05/05/2023 Active cyclobenzaprine (Flexeril) 5 MG tablet Take 1 (one) tablet by mouth 3 times daily as needed (Muscle spasms) 15 tablet 05/05/2023 Active ibuprofen (Motrin) 600 MG tablet Take 1 (one) tablet by mouth every 6 hours as needed for Pain 30 tablet 05/05/2023 Active Active Problems Problem Noted Date Diagnosed Date Morbid obesity with BMI of 50.0-59.9, adult 03/30 IUD check up 01/29/2018 Borderline hypertension 01/16/2017 Anxiety and depression 12/25/2014 Migraine 12/29/2012 Overview (01/04/2013): Naproxen, Maxalt, ondansetron. Suspected triggers: lifestyle with disrupted sleep likely a prime contributor and skipping meals Pes planus 12/20/2011 Overview (12/20/2011): [facility] -Dr. Medina. orthotics Posterior tibial tendinitis 12/20/2011 Overview (12/20/2011): [facility]-Dr. Medina. Orthotics. Bipolar disorder 09/17/2011 Overview (09/17/2011): Diagnosed and managed by Psychiatry UTI (urinary tract infection) 08/26/2011 Overview (09/09/2011): 03/02/11 PW bactrim; 05/31/11 UC-SL bactrim, 08/26/11 Closed fracture of right humerus 03/21/2011 Overview (03/21/2011): 12/2002 supracondylar Closed fracture of right distal radius and ulna 03/21/2011 Overview (03/21/2011): 12/2002 BMI,pediatric > 99% for age 0111/01/2010 Overview (07/31/2023): Family history of morbid obesity July 2023 Regulatory Update Premature adrenarche 03/12/2010 Overview (09/17/2011): Noted at age 8, advanced bone age. Elevated 17-OHP. noncompliant with Endocrine referral ADHD (attention deficit hyperactivity disorder) Overview (02/05/2016): Diagnosed 09/07/2007 Recheck 01/23/09, 08/18/09, 02/26/10, 10/25/10. 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 Triggers-URI. Saw Pulmonary (Dr. Fonseca) 10/2005. Chronic rhinitis Overview (03/21/2011): immunocapRespiratory Allergen profile negative Routine or child health check Overview (03/21/2011): Established care 05/15/2004 4yr, 03/29/05 5yr Acute suppurative otitis med ia without spontaneous rupture of ear drum Overview (07/30/2015): history of recurrent otitis media. Acute infections: 11/26/11 AD> augmentin Dyshidrosis BMI (body mass index), pediatric, > 99% for age Resolved Problems Problem Noted Date Diagnosed Date Resolved Date Knee pain 04/06/2008 03/12/2010 Acute pharyngitis 03/21/2011 Streptococcal sore throat Acute sinusitis 08/27/2015 Overview (07/30/2015): Bronchitis 03/12/2010 Overview (07/30/2015): Extrinsic asthma with exacerbation 03/12/2010 Immunizations Name Administration Dates Next Due INFLUENZA VACCINE, TRIV. (AF LURIA, FLUZONE TRIVALENT; 6MO+) (IIV3) 12/18/2014,09/17/2013,09/10/2011,10/25,10/22/2009,09/12/2008 DTaP VACCINE IM (6wk-6yrs) 03/29/2005,,2000,08/08,2000 HEP A PEDS 2 DOSE 08/28/2008,08/29/2006 HEP B VACCINE, PED/ADOL 09/29/2001,2000, HIB BOOSTER 09/29/2001,2000,2000 Human Papilloma Virus Booker valent Vaccine 12/18/2014,09/17/2013,09/10/2011 INFLUENZA A [id number] VACCINE 10/22/2009 INFLUENZA VACCINE 09/07/2007,08/29/2006 INFLUENZA VACCINE, QUADR. (A FLURIA, FLUZONE QUADRIVALENT; 6MO+) (IIV4) 08/30/2016 INFLUENZA VACCINE, QUADR. (F LUZONE; FLULAVAL; FLUARIX; AFLURIA QUADRIVALENT; 6MO+), 0.5 ML (IIV4) 11/20/2017 MENINGOCOCCAL CONJUGATE (MCV4P) 06/20/2016,09/10 MMR 03/29/2005,03/31/2001 PNEUMOCOCCAL CONJ, PEDS 03/31/2001,10/03,2000,05/29 POLIO IPV 03/29/2005, 1,2000,05/29 TDAP (7yrs+) 09/10/2011 VARICELLA 10/25/2010,03/31/2001 Family History Medical History Relation Name Comments Arthritis Father Peter Bipolar Disorder Father Jamie Depression Father Peter Migraine Father Peter Hypercholesterolemia Maternal Grandfather Depression Maternal Grandmother Hypertension Maternal Grandmother Allergies Mother Sherry Bipolar Disorder Mother Sherry Depression Mother Sherry Diabetes Mother Sherry Hypercholesterolemia Mother Sherry Hypertension Mother Sherry Migraine Mother Sherry Thyroid Disease Mother Sherry Cancer - Breast Other 1 mggm Diabetes Other 2 mggm Heart Disease Paternal Grandfather Cancer - Colon Paternal Uncle Relation Name Status Comments Father Jamie Alive obese, bipolar Maternal Grandfather Maternal Grandmother Mother Sherry Alive obese, JODI, DM, bipolar Other 1 Other 2 Paternal Grandfather Paternal Uncle Social History Tobacco Use Types Packs/Day Years [...] Mass Index 36.61 05/05/2023 11:43 AM CDT Plan of Treatment Health Maintenance Due Date Last Done Comments HIV SCREENING 2015 CHLAMYDIA/GONORRHEA SCREENING 2016 HEPATITIS C SCREENING 03/24/2018 DTAP/TDAP/TD VACCINES (6 - Td or Tdap) 09/10/2021 09/10/2011, 03/29/2005, 2000, Additional history exists PAP SMEAR 11/17/2022 11/17/2019, 08/30, 01/07/2018 COVID-19 VACCINE ( season) 2024 08/17/2021, 07/27/2021 INFLUENZA VACCINE (#1) 2024 8, 08/30/2016, 12/18/2014, Additional history exists ZOSTER VACCINE (1 of 2) 2050 PNEUMOCOCCAL VACCINE Completed 03/31/2001, 2000, 2000, Additional history exists HEPATITIS B VACCINE Completed 09/29/2001, 2000, 2000 HIB VACCINE Completed 09/29/2001, 07/30, 2000 HPV VACCINE Completed 12/18/2014, 08/30, 09/10/2011 MENINGOCOCCAL VACCINE Completed 06/20/2016, 011 MENINGOCOCCAL (Group B) VACCINE Aged Out No longer eligible based on patient's age to complete this topic Goals Goal Patient Goal Type Associated Problems Recent Progress Patient-Stated? Author Use safety retraint in car Lifestyle On track( 018 12:10 PM IT AUDIT MANAGER) Deanna Valdivia RN Kirstin Martinez Personal/Family Self [address] [place] [address] Kirstin Martinez Personal/Family Self [address] [place] [address]
--- OUTSIDE RECORDS SUMMARY | 2024-12-02 15:51 | XMS_ITS | Encounter Summary ---
Author Organization [facility] Address [address] [place] [address] Care Team Providers Care Investment Associate Name Role Phone Katrina Ag DO Primary Care Provider [phone] Encounter Details Date Type Department Care Team (Late st Contact Info) Description 11/08/2005 Outpatient Historical [facility] [address] [phone] Chadwick Chen Social History Tobacco Use Types Packs/Day Years Used Date Smoking Tobacco: Never Assessed Comments Unknown Sex and Gender Information Value Date Recorded Sex Assigned at Not on file Legal Sex Female 3:23 AM RECEIVING TANK OPERATOR Gender Identity Not on file Sexual Orientation Not on file documented as of this encounter Plan of Treatment Not on file documented as of this encounter Visit Diagnoses Not on filedocumented in this encounter Additional Health Concerns Infection Onset Date Last Indicated Resolved Time R/O COVID-19 04/28/2020 04/28/2020 04/28/2020 3:00 AM CDT R/O COVID-19 09/29/2020 09/29/2020 09/30/2020 12:2 3 AM RECEIVING TANK OPERATOR R/O COVID-19 02/11/2024 02/11/2024 02/11/2024 7:28 AM CDT documented as of this encounter Care Teams Investment Associate Relationship Specialty [place] [address] [place] [address] PCP - General Internal Medicine 02/26/24 documented as of this encounter
--- OUTSIDE RECORDS SUMMARY | 2024-12-02 15:51 | XMS_ITS | Clinical Summary ---
Author Organization [facility] Address [address] [place] [address] Phone Care Team Providers Care Tandem Mill Operator Name Role Phone Katrina Ag DO Primary Care Provider [phone] Allergies Active Allergy Reactions Criticality Noted Date Comments Adhesive Itching Low 12/05/2016 Adhesive Rash Low 02/21/2024 Adhesive Tape-Silicones Itching Low 12/05/2016 Adhesive Tape-Silicones Rash Low 02/21/2024 Cefdinir Hives,Swelling High 11/20/2016 Cefdinir Hives High 02/21/2024 Medications No known medications Active Problems Problem Noted Date Diagnosed Date History of substance abuse 02/26/2024 Numbness and tingling 02/22/2024 Low back pain 02/21/2024 Numbness and tingling of left lower extremity Numbness and tingling of right face 02/21/2024 Trichomoniasis 02/21/2024 Lumbar disc herniation 02/21/2024 Tonsillitis 01/26/2024 ADHD (attention deficit hyperactivity disorder) 10/21/2020 Overview (10/21/2020): Overview: Diagnosed 09/07/2007 Recheck 01/23/09, 08/18/09, 02/26/10, 10/25/10. 02/05/16-restart meds Dyshidrosis 10/21/2020 Extrinsic asthma 10/21/2020 Overview (10/21/2020): Overview: Cough predominant. Triggers-URI. Saw Pulmonary (Dr. Fonseca) 10/2005. Midline back pain 04/28/2020 Tension type headache 04/28/2020 History of lumbar laminectomy for spinal cord de compression 03/27/2020 PTSD (post-traumatic stress disorder) 03/17/2020 HTN (hypertension), benign 03/17/2020 Bipolar affective 03/17/2020 Lumbar back pain with radicu lopathy affecting right lower extremity 03/16/2020 IUD check up- Mirena IUD placed 01/10/20182017 Ovarian cyst, left 01/10/2018 Migraine 12/29/2012 Overview (10/21/2020): Overview: Naproxen, Maxalt, ondansetron. Suspected triggers: lifestyle with disrupted sleep likely a prime contributor and skipping meals Pes planus 12/20/2011 Overview (10/21/2020): Overview: Sees Podiatry -Dr. Medina. orthotics Acute left-sided low back pain with left-sided s ciatica Left leg numbness Ambulatory dysfunction Lumbar disc herniation with radiculopathy Resolved Problems Problem Noted Date Diagnosed Date Resolved Date Tobacco use 06/07/2019 10/21/2020 Morbid obesity with BMI of 50.0-59.9, adult 04/13/2018 03/15/2024 Abdominal pain 01/07/2018 10/21/2020 Closed fracture of right dis naomie radius and ulna 03/21/2011 10/21/2020 Overview (10/21/2020): Overview: 12/2002 Closed fracture of right humerus 03/21/2011 10/21/2020 Overview (10/21/2020): Overview: 12/2002 supracondylar Acute pyelonephritis 020 Encounters Date Type Department Care Team Description 11/27/2024 External Device Data STL ABSTRACTION Provider, Abstract 11/12/2024 External Device Data STL ABSTRACTION Provider, Abstract 10/22/2024 External Device Data STL ABSTRACTION Provider, Abstract from Last 3 Months Immunizations Immunization Administration Dates Next Due (ADACEL/BOOSTRIX)(10 YR UP) TDAP VACCINE, 0.5ML, IM 09/10/2011 (GARDASIL)(9-45 YRS) HUMAN PAPILLOMAVIRUS VACCINE, TYPES 6, 11, 16, 18, QUADRIVALENT (4VHPV), 3 DOSE, IM 12/18/2014,09/17/2013,09/10/2011 (HAVRIX/VAQTA)(12 MO-18 YRS) HEPATITIS A VACCINE 0.5 ML PED/ADOL 2 DOSE, IM 08/28/2008,08/29/2006 (INFANRIX)(6 WKS-6 YRS) DIPT HERIA, TETANUS TOXOIDS, AND ACCELLULAR PERTUSSIS VACCINE (DTAP), 0.5 ML IM 03/29/2005,2000,2000,08/08,2000 (IPOL)(6 WKS AND UP) POLIOVI ALIE VACCINE, INACTIVATED (IPV), 3 DOSE, SUBCUT OR IM 03/29/2005,09/29/2001,2000,05/29 (M-M-R II/PRIORIX)(12 MO UP) MEASLES, MUMPS AND RUBELLA VIRUS VACCINE, 0.5 ML IM/SUBCUT 03/29/2005,03/31/2001 (MENACTRA)(9 MO-55 YR) MENIN GOCOCCAL POLYSACCHARIDE A, C, Y AND W-135 DIPTHERIA TOXOID CONJUGATE VACCINE, (PF), 0.5ML, IM 06/20/2016,09/10/2011 (PREVNAR 13)(6 WKS UP) PNEUM OCOCCAL CONJUGATE (PCV13) 0.5 ML, IM 03/31/2001,2000,2000,05/29 (RECOMBIVAX HB/ENGERIX-B)(0- 19 YRS) HEPATITIS B VACCINE 5 MCG/0.5 ML OR 10 MCG/0.5 ML PED OR ADOL 3 DOSE (PF), IM 09/29/2001,2000,2000 (VARIVAX)(12 MOS UP)VARICELL A VIRUS VACCINE (PF) 0.5 ML, SUB CUT 10/25/2010,03/31/2001 Hemophilus influenza b vacci ne (Hib), PRP-D conjugate, for booster use only, intramuscular use 09/29/2001,2000,2000 INFLUENZA VACCINE QUADRIVALE NT 6 MOS UP IM 08/30/2016 INFLUENZA VACCINE QUADRIVALE NT 6 MOS UP PF IM 11/20/2017 Influenza Seasonal Unspecifi ed Formulation IM 12/18/2014,09/17/2013,09/10/2011,10/25,10/22/2009,09/12/2008 Influenza, Unspecified Formulation 09/07/2007, Family History Medical History Relation Name Comments Healthy Father Depression Mother Diabetes Mother Hypertension Mother Other Mother Thyroid Disease Mother Relation Name Status Comments Father Alive Mother Alive osteoartritis, nueropathy Social History Tobacco Use Types Packs/Day Years Used Date Smoking Tobacco: Some Days Cigarettes Passive Smoke Exposure: Never Smokeless Tobacco: Never Tobacco Cessation:Ready to Q uit: Not Asked; Counseling Given: Not Answered Alcohol Use Standard Drinks/Week Comments Yes 6 (1 standard drink = 0.6 oz pur e alcohol) Feeling Safe Answer Date Recorded Are you in a relationship wi th someone who hurts you emotionally and/or physically? 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 Gender Identity Not on file Sexual Orientation Not on file Last Filed Vital Signs Vital Sign Reading Time Taken Comments Blood Pressure 147/89 05/13/2024 3:00 AM CDT Pulse 73 05/13/2024 3:00 AM CDT Temperature 36.9 ??C (98.5 ??F) 05/13/2024 3:00 AM CD T Respiratory Rate 17 05/13/2024 3:00 AM CDT Oxygen Saturation 100% 05/13/2024 3:00 AM CDT Inhaled Oxygen Concentration - - Weight 124.7 kg (275 lb) 05/12/2024 7:56 PM CDT Height 172.7 cm (5' 8 ) 05/12/2024 7:56 PM CDT Body Mass Index 41.81 05/12/2024 7:56 PM CDT Plan of Treatment Health Maintenance Due Date Last Done Comments PNEUMOCOCCAL VACCINE 0-64 YE ARS (1 of 1 - PPSV23) 2006 03/31/2001, 2000, 2000, Additional history exists Preventative Visit-Managed Medicaid 2019 12/18/2014, 09/17/2013, 09/10/2011, Additional history exists CERVICAL CANCER SCREENING 2021 DTAP/TDAP/TD VACCINES (6 - T d or Tdap) 09/10/2021 09/10/2011, 03/29/2005, 2000, Additional history exists INFLUENZA VACCINE (#1) 2024 8, 08/30/2016, 12/18/2014, Additional history exists HEPATITIS B VACCINES Completed 09/29/2001, 2000, 2000 HPV VACCINES Completed 12/18/2014, 08/30, 09/10/2011 CHLAMYDIA SCREENING (ANNUAL) 11-24 YEARS Discontinued 02/11/2024, 11/17/2019, 09/11/2019, Additional history exists Medical Devices Implanted Type Area Facilities Administrator Device Identifier Shelf Expiration Date Model / Serial / Lot Hemostatic Surgiflo 8ml W/Thrombin 2994 - [id number] Implanted:Qty : 1 on 03/21/2020 by Bipin Puentes DO at [facility] Hemostatic N/A: Vertebrae [employer] 09/28/2020 [id number] / / [id number] Mirena Implanted:Qty : 1 on 01/10/2018 by Kavon Hu MD at [facility] Uterus 07/29/2020 [id number] 12-28 / [id number] Procedures Procedure Name Priority Date/Time Associated Diagnosis Comments GC/CHLAMYDIA, UROGENITAL Stat 02/11/2024 8:27 AM CDT from Last 3 Months or Most Recently Relevant to Health Maintenance Results * GC/CHLAMYDIA, UROGENITAL (02/11/2024 8:27 AM CDT) CHLAMYDIA DNA AMPLIFICATION NOT DETECTED Not Detected 02/11/2024 10:19 AM CDT [facility] GC DNA AMPLIFICATION NOT DETECTED Not Detected 02/11/2024 10:19 AM CDT [facility] [employer] [facility] Genital SPECIMEN FROM VAGINA / Unknown Collection / Unknown 02/11/2024 8:27 AM CDT 02/11/2024 8:29 AM CDT Narrative [facility] - 02/11/2024 10:19 AM CDT Results should not be used for the evaluation of suspected sexual abuse or for other medico-legal indications. The only legally accepted results are from culture. Results cannot be used to assess therapeutic success or failure since nucleic acids may persist following antimicrobial therapy. Aishwarya Davis MD MICROBIOLOGY - GENERAL O RDERABLES Final Result [facility] [id number] [address] [place] [address] from Last 3 Months or Most Recently Relevant to Health Maintenance Insurance [facility] [id number] [facility] [address] [facility] [id number] RX [employer]CROSSING Medicaid [facility] Advance Directives For more information, please contact: [phone] * Full Code (Latest Code Status on File) Date Activated Date Inactivated Comments 02/21/2024 11:33 AM 02/23/2024 6:41 PM * Full Code Date Activated Date Inactivated Comments 10/09/2020 9:16 AM 10/10/2020 12:31 AM * Full Code Date Activated Date Inactivated Comments 04/28/2020 9:33 AM 04/29/2020 7:50 PM * Full Code Date Activated Date Inactivated Comments 03/17/2020 11:54 PM 03/22/2020 7:36 PM * Full Code Date Activated Date Inactivated Comments 01/10/2018 11:51 AM 01/11/2018 8:37 PM Care Teams Tandem Mill Operator Relationship Specialty [place] [address] [address] [place] [address] PCP - General Internal Medicine 02/26/24
--- OUTSIDE RECORDS SUMMARY | 2024-12-02 15:51 | XMS_ITS | Encounter Summary ---
Author Organization [facility] Address [address] [place] [address] Care Team Providers Care Pipe Coverer Name Role Phone Katrina Ag DO Primary Care Provider [phone] Encounter Details Date Type Department Care Team (Late st Contact Info) Description 01/23/2006 Outpatient Historical [facility] Res[facility] Sleep Medicine [address] [place] [phone] Chadwick Champion MD [address] [place] [address] Social History Tobacco Use Types Packs/Day Years Used Date Smoking Tobacco: Never Assessed Comments Unknown Sex and Gender Information Value Date Recorded Sex Assigned at Not on file Legal Sex Female 3:23 AM HUMAN RESOURCES DIRECTOR Gender Identity Not on file Sexual Orientation Not on file documented as of this encounter Plan of Treatment Not on file documented as of this encounter Visit Diagnoses Not on filedocumented in this encounter Additional Health Concerns Infection Onset Date Last Indicated Resolved Time R/O COVID-19 04/28/2020 04/28/2020 04/28/2020 3:00 AM CDT R/O COVID-19 09/29/2020 09/29/2020 09/30/2020 12:2 3 AM HUMAN RESOURCES DIRECTOR R/O COVID-19 02/11/2024 02/11/2024 02/11/2024 7:28 AM CDT documented as of this encounter Care Teams Pipe Coverer Relationship Specialty [place] [address] [address] [place] [address] PCP - General Internal Medicine 02/26/24 documented as of this encounter
--- OUTSIDE RECORDS SUMMARY | 2024-12-02 15:51 | XMS_ITS | Referral Summary ---
Author Organization [facility] Address [address] [place] [address] Care Team Providers Care Vmware Engineer Name Role Phone No, Physician Primary Care Provider [phone] Allergies Active Allergy Reactions Criticality Noted Date Comments Cefdinir Iwelfray-Xtnzhrfnks-Txwotzxvd Social History Tobacco Use Types Packs/Day Years Used Date Smoking Tobacco: Never Assessed Personal Safety Answer Date Recorded Getting School Help Needed Not on file 05/05 Comments Unknown Sex and Gender Information Value Date Recorded Sex Assigned at Not on file Legal Sex Female 5:59 PM CAD PROGRAMMER Gender Identity Not on file Sexual Orientation Not on file Last Filed Vital Signs Vital Sign Reading Time Taken Comments Blood Pressure 159/97 04/10/2023 1:55 PM CDT Pulse 56 04/10/2023 1:55 PM CDT Temperature 36.3 ??C (97.4 ??F) 04/10/2023 11:45 AM C DT Respiratory Rate 17 04/10/2023 1:55 PM CDT Oxygen Saturation 100% 04/10/2023 1:55 PM CDT Inhaled Oxygen Concentration - - Weight 127 kg (280 lb) 04/10/2023 11:46 AM CDT Height 172.7 cm (5' 8 ) 04/10/2023 11:46 AM CDT Body Mass Index 42.57 04/10/2023 11:46 AM CDT Plan of Treatment Not on file Insurance [facility] Care Teams Vmware Engineer Relationship Specialty Start Date End Date No, Physician PCP - General 05/15/20
--- OUTSIDE RECORDS SUMMARY | 2024-12-02 15:51 | XMS_ITS | Referral Summary ---
Author Organization [facility] [employer] Address [address] [place] [address] Care Team Providers Care Fiberglass Boat Assembly Supervisor Name Role Phone Unavailable Primary Care Provider Unavailabl e Source Comments [facility],non-owned Affiliates and Associated Physician Practices is amultiple site organization consisting of ambulatory clinics and hospital sitesin [place], [place], [place] and [place]. This disclosure is being madepursuant to the Care Everywhere program and may not contain all information available regarding this patient. Last updated 18.[employer] Allergies Active Allergy Reactions Criticality Noted Date Comments Adhesive Sensitivity Itching 12/05/2016 Amexerkh-Hqcykjdsyb-Iqkfotnlb Rash Low 2009 Omnicef Urticaria,Swelling 04/06/2008 hives Cefdinir 09/14/2011 Medications * Be aware that medications may not be up to date on this document. Alwaysverify current medications with the patient. Medication Sig Dispensed Refills Start Date End Date Status rizatriptan, disintegrating, (MAXALT-STUFFED CASING TIER) 10 MG tablet Take 1 tab at [...] Virus Booker valent Vaccine 12/18/2014,09/17/2013,09/10/2011 INFLUENZA A [id number] VACCINE 10/22/2009 INFLUENZA VACCINE 09/07/2007,08/29/2006 INFLUENZA VACCINE, QUADR. (A FLURIA, FLUZONE QUADRIVALENT; 6MO+) (IIV4) 08/30/2016 INFLUENZA VACCINE, QUADR. (F LUZONE; FLULAVAL; FLUARIX; AFLURIA QUADRIVALENT; 6MO+), 0.5 ML (IIV4) 11/20/2017 MENINGOCOCCAL CONJUGATE (MCV4P) 06/20/2016,09/10 MMR 03/29/2005,03/31/2001 PNEUMOCOCCAL CONJ, PEDS 03/31/2001,10/03,2000,05/29 POLIO IPV 03/29/2005, 1,2000,05/29 TDAP (7yrs+) 09/10/2011 VARICELLA 10/25/2010,03/31/2001 Social History Tobacco Use Types Packs/Day Years [...] 05/05/2023 11:43 AM CDT Plan of Treatment Not on file Goals Goal Patient Goal Type Associated Problems Recent Progress Patient-Stated? Author Use safety retraint in car Lifestyle On track( 018 12:10 PM ADMISSIONS COORDINATOR) Deanna Valdivia, RN Kirstin Martinez Personal/Family Self [address] [place] [address] Kirstin Martinez Personal/Family Self [address] [place] [address]
--- OUTSIDE RECORDS SUMMARY | 2024-12-02 15:51 | XMS_ITS | Encounter Summary ---
Author Organization [facility] Address [address] [place] [address] Care Team Providers Care Band Director Name Role Phone Katrina Ag DO Primary Care Provider [phone] Encounter Details Date Type Department Care Team (Late st Contact Info) Description 11/08/2005 Outpatient Historical [facility] Respiratory and Sleep Medicine [address] [phone] Chadwick Chen Social History Tobacco Use Types Packs/Day Years Used Date Smoking Tobacco: Never Assessed Comments Unknown Sex and Gender Information Value Date Recorded Sex Assigned at Not on file Legal Sex Female 3:23 AM TRANSPORTATION OFFICER Gender Identity Not on file Sexual Orientation Not on file documented as of this encounter Plan of Treatment Not on file documented as of this encounter Visit Diagnoses Not on filedocumented in this encounter Additional Health Concerns Infection Onset Date Last Indicated Resolved Time R/O COVID-19 04/28/2020 04/28/2020 04/28/2020 3:00 AM CDT R/O COVID-19 09/29/2020 09/29/2020 09/30/2020 12:2 3 AM TRANSPORTATION OFFICER R/O COVID-19 02/11/2024 02/11/2024 02/11/2024 7:28 AM CDT documented as of this encounter Care Teams Band Director Relationship Specialty [place] [address] [address] [place] [address] PCP - General Internal Medicine 02/26/24 documented as of this encounter
--- OUTSIDE RECORDS SUMMARY | 2024-12-02 15:51 | XMS_ITS | Clinical Summary ---
Author Organization [facility] Address [address] [place] [address] Care Team Providers Care Resolution Specialist Name Role Phone No, Physician Primary Care Provider [phone] Allergies Active Allergy Reactions Criticality Noted Date Comments Cefdinir Jtaimwsj-Lpytecsoik-Oviesskzm Social History Tobacco Use Types Packs/Day Years Used Date Smoking Tobacco: Never Assessed Personal Safety Answer Date Recorded Getting School Help Needed Not on file 05/05 Comments Unknown Sex and Gender Information Value Date Recorded Sex Assigned at Not on file Legal Sex Female 5:59 PM SECURITY TEST ENGINEER Gender Identity Not on file Sexual Orientation [...] 04/10/2023 11:46 AM CDT Plan of Treatment Health Maintenance Due Date Last Done Comments Cervical Cancer Screening 2000 Depression Screening 2000 Hepatitis C Screening 2000 Pneumococcal vaccine <65 (1 of 2 - PCV) 2006 Regular Well Visit/Exam 18-64 2018 DTaP/Tdap/Td Vaccine (6 - Td or Tdap) 09/10/2021 09/10/2011, 03/29/2005, 2000, Additional history exists Influenza Vaccine (#1) 2024 8, 08/30/2016, 12/18/2014, Additional history exists Varicella Vaccines Completed 10/25/2010, 03/31/2001 HPV Vaccines Completed 12/18/2014, 08/30, 09/10/[address] [facility] Care Teams Resolution Specialist Relationship Specialty Start Date End Date No, Physician PCP - General 05/15/20
[2024-12-02 16:22] VITALS: BP 113/89; PULSE 75; RESP 18; TEMP 36.5; O2SAT 99
[2024-12-02 16:49] LABS: BEDSIDEPREGUCG Negative (Negative)
--- OUTSIDE RECORDS SUMMARY | 2024-12-02 17:13 | XMS_ITS | Clinical Summary ---
Author Organization [facility] [employer] Address [address] [place] [address] Care Team Providers Care Home Care Associate Name Role Phone Unavailable Primary Care Provider Unavailabl e Source Comments [facility],non-owned Affiliates and Associated Physician Practices is amultiple site organization consisting of ambulatory clinics and hospital sitesin [place], [place], [place] and [place]. This disclosure is being madepursuant to the Care Everywhere program and may not contain all information available regarding this patient. Last updated 18.[employer] [facility] Allergies Active Allergy Reactions Criticality Noted Date Comments Adhesive Sensitivity Itching 12/05/2016 Tmtmashj-Uumtjicshr-Omjcupjkb Rash Low 2009 Omnicef Urticaria,Swelling 04/06/2008 hives Cefdinir 09/14/2011 Medications * Be aware that medications may not be up to date on this document. Alwaysverify current medications with the patient. Medication Sig Dispensed Refills Start Date End Date Status rizatriptan, disintegrating, (MAXALT-COOKY MACHINE OPERATOR) 10 MG tablet Take 1 tab at [...] Virus Booker valent Vaccine 12/18/2014,09/17/2013,09/10/2011 INFLUENZA A [id number] VACCINE 10/22/2009 INFLUENZA VACCINE 09/07/2007,08/29/2006 INFLUENZA VACCINE, [...] car Lifestyle On track( 018 12:10 PM WINDER FIXER) Deanna Valdivia RN Kirstin Martinez Personal/Family Self [id number] [place] [address] Kirstin Martinez Personal/Family Self [address] [place] [address]
--- OUTSIDE RECORDS SUMMARY | 2024-12-02 17:14 | XMS_ITS | Encounter Summary ---
Author Organization [facility] Address [address] [place] [address] Care Team Providers Care Environmental Sciences Professor Name Role Phone Katrina Ag DO Primary Care Provider [phone] Encounter Details Date Type Department Care Team (Late st Contact Info) Description 11/08/2005 Outpatient Historical [facility] Children Respiratory and Sleep Medicine [address] [phone] Chadwick Chen Social History Tobacco Use Types Packs/Day Years Used Date Smoking Tobacco: Never Assessed Comments Unknown Sex and Gender Information Value Date Recorded Sex Assigned at Not on file Legal Sex Female 3:23 AM SHUTDOWN COORDINATOR Gender Identity Not on file Sexual Orientation Not on file documented as of this encounter Plan of Treatment Not on file documented as of this encounter Visit Diagnoses Not on filedocumented in this encounter Additional Health Concerns Infection Onset Date Last Indicated Resolved Time R/O COVID-19 04/28/2020 04/28/2020 04/28/2020 3:00 AM CDT R/O COVID-19 09/29/2020 09/29/2020 09/30/2020 12:2 3 AM SHUTDOWN COORDINATOR R/O COVID-19 02/11/2024 02/11/2024 02/11/2024 7:28 AM CDT documented as of this encounter Care Teams Environmental Sciences Professor Relationship Specialty [place] [address] [address] [place] [phone] PCP - General Internal Medicine 02/26/24 documented as of this encounter
--- OUTSIDE RECORDS SUMMARY | 2024-12-02 17:14 | XMS_ITS | Referral Summary ---
Author Organization [facility] Address [address] [place] [address] Care Team Providers Care Java Designer Name Role Phone No, Physician Primary Care Provider [phone] Allergies Active Allergy Reactions Criticality Noted Date Comments Cefdinir Lcrpiedn-Guyzvxbxrj-Agddvuauo Social History Tobacco Use Types Packs/Day Years Used Date Smoking Tobacco: Never Assessed Personal Safety Answer Date Recorded Getting School Help Needed Not on file 05/05 Comments Unknown Sex and Gender Information Value Date Recorded Sex Assigned at Not on file Legal Sex Female 5:59 PM PRODUCT SAFETY LEAD Gender Identity Not on file Sexual Orientation [...] Plan of Treatment Not on file Insurance [facility] Care Teams Java Designer Relationship Specialty Start Date End Date No, Physician PCP - General 05/15/20
--- OUTSIDE RECORDS SUMMARY | 2024-12-02 17:14 | XMS_ITS | Patient Health Summary ---
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 investigations, occupational issues, child custody. [facility] URINE / Unknown 09/14/2011 2 :03 PM REIMBURSEMENT REP 09/14/2011 2:05 PM REIMBURSEMENT REP Martin Mars MD LAB - URINE CHEMISTR Y ORDERABLES Performing Organization Address City/[facility]/ZIP Co de Phone Number [facility] [address] [place] [phone] * HCG URINE QUALITATIVE - POINT OF CARE (09/14/2011 1:45 PM REIMBURSEMENT REP) HCG Qual Urine neg Negative [facility] POCT TESTING QC Verified yes Yes [facility] PO CT TESTING Urine specimen (specimen) URINE / Unknown 09/14/2011 1:45 PM REIMBURSEMENT REP Martin Mars MD LAB - POINT OF CARE ORDERABLES Performing Organization Address [facility]/ZIP Co de Phone Number [facility] POCT TESTING * (ABNORMAL) URINALYSIS - POINT OF CARE (09/10/2011 12:09 PM REIMBURSEMENT REP) Only the most recent of3 resultswithin the time period is included. Clarity UA POCT Color UA POCT Leukocyte UA Trace Negative Nitrite UA POCT neg Negative Urobilinogen UA POCT neg 0.1 - 1.0 EU/dL Protein UA POCT neg Negative pH UA 6.0 5.0 - 8.0 pH units Blood UA neg Negative Specific Thayer UA POCT 1.020 1.002 - 1.030 Ketone UA neg Negative Bilirubin UA POCT neg Negative Glucose UA neg Negative Urine specimen (specimen) URINE / Unknown Joya Xie MD LAB - POINT OF CARE ORDERABLES * TESTOSTERONE TOTAL (05/20/2009 8:27 AM CDT) Testosterone 16 0 - 30 ng/dL [facility] ACCOUNT BILL 05/20/2009 8:27 AM CDT 05/20/2009 10:41 PM CDT Narrative Resulting Agency Comment [facility] [address] ??[facility] [phone] Joya Xie MD LAB - CHEMISTRY ARCHIE [...] Narrative Resulting Agency Comment [facility] [place] [address] ??[place] [phone] Joya Xie MD LAB - CHEMISTRY ARCHIE GRIGSBY [facility] ACCOUNT BILL * CORTISOL BLOOD AM (05/20/2009 8:27 AM CDT) Cortisol AM 18.5 4.3 - 22.4 ug/dL [facility] ACCOUNT BILL 05/20/2009 8:27 AM CDT 05/20/2009 10:41 PM CDT Narrative Resulting Agency Comment [facility] [place] [address] ??[facility] [phone] Joya Xie MD LAB - CHEMISTRY ARCHIE GRIGSBY [facility] ACCOUNT BILL * XR BONE AGE HAND AND WRIST (01/26/2009) Anatomical Region Laterality Modality Upper Extremity, Wrist / Hand Ot her Joya Xie MD DIAGNOSTIC IMAGING O RDERABLES * TSH (09/02/2008 7:45 AM REIMBURSEMENT REP) TSH 3.450 0.360 - 5.800 uIU/mL [facility] ACCOUNT BILL BLOOD SPECIMEN / Unknown 09/02/2008 7:45 AM REIMBURSEMENT REP 09/02/2008 10:43 PM REIMBURSEMENT REP Narrative Resulting Agency Comment [facility] [place] [address] ??[facility] [phone] Joya Xie MD LAB - CHEMISTRY ARCHIE GRIGSBY Performing Organization Address City/[facility] Co de Phone Number [facility] ACCOUNT BILL * T4 FREE (09/02/2008 7:45 AM REIMBURSEMENT REP) T4 Free 1.25 0.82 - 1.58 ng/dL [facility] ACCOUNT BILL BLOOD SPECIMEN / Unknown 09/02/2008 7:45 AM REIMBURSEMENT REP 09/02/2008 10:43 PM REIMBURSEMENT REP Narrative Resulting Agency Comment [facility] [place] [address] ??[facility] [phone] Joya Xie MD LAB - CHEMISTRY ARCHIE GRIGSBY Performing Organization Address City/[facility]/ZIP Co de Phone Number [facility] ACCOUNT BILL * BORDETELLA PERTUSSIS PCR PANEL (08/28/2008 12:01 PM CDT) Bordetella pertussis DNA STRINGED INSTRUMENT TUNER Swab Negative Negative [facility] INSURANCE BILL Bordetella parapertussis DNA PCR STRINGED INSTRUMENT TUNER Swab Negative Negative [facility] INSURANCE BILL Comment: ? . This test was developed and its performance characteristics determined by [employer]. It has not been cleared or approved by the U.S. Food and Drug Administration. The FDA has determined that such clearance or approval is not necessary. This test is used for clinical purposes. It should not be regarded as investigational or research. NASOPHARYNGEAL SWAB / Unknown 08/28/2008 12:01 PM CDT 09/01/2008 5:11 PM REIMBURSEMENT REP Narrative Resulting Agency Comment [facility] [address] ??[facility] [phone] Joya Xie MD LAB - MICROBIOLOGY O SAUL [facility] INSURANCE BILL * HIPS BILATERAL TWO VIEW WITH AP PELVIS RV (04/06/2008 11:12 PM CDT) Anatomical Region Laterality Modality Pelvis, Lower Extremity [facility] 04/07/2008 8:00 AM CDT Impressions [...]
--- OUTSIDE RECORDS SUMMARY | 2024-12-02 17:14 | XMS_ITS | Encounter Summary ---
Author Organization [facility] Address [address] [place] [address] Care Team Providers Care Respiratory Coordinator Name Role Phone Katrina Ag DO Primary Care Provider [phone] Encounter Details Date Type Department Care Team (Late st Contact Info) Description 01/23/2006 Outpatient Historical [facility] Children[facility] Respiratory and Sleep Medicine [address] [place] [phone] Chadwick Champion MD [address] [place] [address] Social History Tobacco Use Types Packs/Day Years Used Date Smoking Tobacco: Never Assessed Comments Unknown Sex and Gender Information Value Date Recorded Sex Assigned at Not on file 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 Sex 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 Gender Identity Not on file Sexual Orientation Not on file documented as of this encounter Plan of Treatment Not on file documented as of this encounter Visit Diagnoses Not on filedocumented in this encounter Additional Health Concerns Infection Onset Date Last Indicated Resolved Time R/O COVID-19 04/28/2020 04/28/2020 04/28/2020 3:00 AM CDT R/O COVID-19 09/29/2020 09/29/2020 09/30/2020 12:2 3 AM MERCHANDISE STOCKER R/O COVID-19 02/11/2024 02/11/2024 02/11/2024 7:28 AM CDT documented as of this encounter Care Teams Respiratory Coordinator Relationship Specialty [place] [address] [address] [place] [address] PCP - General Internal Medicine 02/26/24 documented as of this encounter
--- OUTSIDE RECORDS SUMMARY | 2024-12-02 17:14 | XMS_ITS | Clinical Summary ---
Author Organization [facility] Address [address] [place] [address] Care Team Providers Care House Sitter Name Role Phone No, Physician Primary Care Provider [phone] Allergies Active Allergy Reactions Criticality Noted Date Comments Cefdinir Zxmsdjnn-Ngxsidxxlk-Fqwxtvgjb Social History Tobacco Use Types Packs/Day Years Used Date Smoking Tobacco: Never Assessed Personal Safety Answer Date Recorded Getting School Help Needed Not on file 05/05 Comments Unknown Sex and Gender Information Value Date Recorded Sex Assigned at Not on file Legal Sex Female 5:59 PM DIGESTER Gender Identity Not on file Sexual Orientation [...] HPV Vaccines Completed 12/18/2014, 08/30, 09/10/2011 Insurance [facility] Care Teams House Sitter Relationship Specialty Start Date End Date No, Physician PCP - General 05/15/20
--- OUTSIDE RECORDS SUMMARY | 2024-12-02 17:14 | XMS_ITS | Referral Summary ---
Author Organization [facility] Address [address] [place] [address] Care Team Providers Care Air Dispatcher Name Role Phone Unavailable Primary Care Provider Unavailabl e Source Comments [facility],non-owned Affiliates and Associated Physician Practices is amultiple site organization consisting of ambulatory clinics and hospital sitesin [place], [place], [place] and [place]. This disclosure is being madepursuant to the Care Everywhere program and may not contain all information available regarding this patient. Last updated 18.[employer] [facility] Allergies Active Allergy Reactions Criticality Noted Date Comments Adhesive Sensitivity Itching 12/05/2016 Icqjoclv-Mirtqvurdp-Uupgtsunx Rash Low 2009 Omnicef Urticaria,Swelling 04/06/2008 hives Cefdinir 09/14/2011 Medications * Be aware that medications may not be up to date on this document. Alwaysverify current medications with the patient. Medication Sig Dispensed Refills Start Date End Date Status rizatriptan, disintegrating, (MAXALT-RN ACUTE) 10 MG tablet Take 1 tab at [...] Virus Booker valent Vaccine 12/18/2014,09/17/2013,09/10/2011 INFLUENZA A [id number] VACCINE 10/22/2009 INFLUENZA VACCINE 09/07/2007,08/29/2006 INFLUENZA VACCINE, [...] car Lifestyle On track( 018 12:10 PM PACKAGE CHECKER) Deanna Valdivia, RN Kirstin Martinez Personal/Family Self [id number] [place] [address] Kirstin Martinez Personal/Family Self [address] [place] [address]
--- OUTSIDE RECORDS SUMMARY | 2024-12-02 17:14 | XMS_ITS | Clinical Summary ---
Author Organization [facility] Address [address] [place] [address] Phone Care Team Providers Care Animal Control Supervisor Name Role Phone Katrina Ag DO Primary Care Provider [phone] Allergies Active Allergy Reactions Criticality Noted Date [...] on file Legal Sex Female 3:23 AM SIGHTSEEING GUIDE Gender Identity Not on file Sexual Orientation [...] history exists Medical Devices Implanted Type Area Cold Food Packer Device Identifier Shelf Expiration Date Model / Serial / Lot Hemostatic Surgiflo 8ml W/Thrombin 2994 - [id number] Implanted:Qty : 1 on 03/21/2020 by Bipin Puentes DO at [facility] Hemostatic N/A: Vertebrae [employer] 09/28/2020 2994 / / [id number] Mirena Implanted:Qty : 1 on 01/10/2018 by Kavon Hu MD at [facility] Uterus 07/29/2020 [id number] 12-28 / [id number] Procedures Procedure Name Priority Date/Time Associated Diagnosis Comments GC/CHLAMYDIA, UROGENITAL Stat 02/11/2024 8:27 AM CDT from Last 3 Months or Most Recently Relevant to Health Maintenance Results * GC/CHLAMYDIA, UROGENITAL (02/11/2024 8:27 AM CDT) CHLAMYDIA DNA AMPLIFICATION NOT DETECTED Not Detected 02/11/2024 10:19 AM CDT [facility] GC DNA AMPLIFICATION NOT DETECTED Not Detected 02/11/2024 10:19 AM CDT [facility] [employer] [facility] Genital SPECIMEN FROM VAGINA / Unknown Collection / Unknown 02/11/2024 8:27 AM CDT 02/11/2024 8:29 AM CDT Narrative [facility] - 02/11/2024 10:19 AM CDT Results should not be used for the evaluation of suspected sexual abuse or for other medico-legal indications. The only legally accepted results are from culture. Results cannot be used to assess therapeutic success or failure since nucleic acids may persist following antimicrobial therapy. Aishwarya Davis MD MICROBIOLOGY - GENERAL O RDERABLES Final Result [facility] [id number] [address] [place] [id number] from Last 3 Months or Most Recently Relevant to Health Maintenance Insurance [facility] [id number] [employer] [facility] [id number] RX INFOCROSSING Medicaid [facility] Advance Directives For more information, please contact: [phone] * Full Code (Latest Code Status on [...] 11:51 AM 01/11/2018 8:37 PM Care Teams Animal Control Supervisor Relationship Specialty [place] [address] [address] [place] [address] PCP - General Internal Medicine 02/26/24
--- OUTSIDE RECORDS SUMMARY | 2024-12-02 17:14 | XMS_ITS | Encounter Summary ---
Author Organization [employer] Address [address] [place] [address] Care Team Providers Care Insulation Supervisor Name Role Phone Katrina Ag DO Primary Care Provider [phone] Encounter Details Date Type Department Care Team (Latest Contact Info) Description 11/08/2005 Outpatient Historical [facility] Chadwick Chen COUGH (Primary Dx) Social History Tobacco Use Types Packs/Day Years Used Date Smoking Tobacco: Never Assessed Comments Unknown Sex and Gender Information Value Date Recorded Sex Assigned at Not on file Legal Sex Female 3:23 AM VENDETTE Gender Identity Not on file Sexual Orientation Not on file documented as of this encounter Plan of Treatment Not on file documented as of this encounter Visit Diagnoses Diagnosis Cough- Primary documented in this encounter Additional Health Concerns Infection Onset Date Last Indicated Resolved Time R/O COVID-19 04/28/2020 04/28/2020 04/28/2020 3:00 AM CDT R/O COVID-19 09/29/2020 09/29/2020 09/30/2020 12:2 3 AM VENDETTE R/O COVID-19 02/11/2024 02/11/2024 02/11/2024 7:28 AM CDT documented as of this encounter Care Teams Insulation Supervisor Relationship Specialty [place] [address] [facility] [address] [place] [address] PCP - General Internal Medicine 02/26/24 documented as of this encounter
--- OUTSIDE RECORDS SUMMARY | 2024-12-02 17:14 | XMS_ITS | Encounter Summary ---
Author Organization [facility] Address [address] [place] [address] Care Team Providers Care Migratory Game Bird Biologist Name Role Phone Katrina Ag DO Primary Care Provider [phone] Encounter Details Date Type Department Care Team (Late st Contact Info) Description 11/08/2005 Outpatient Historical [facility] Respiratory and Sleep Medicine [address] [phone] Chadwick Chen Social History Tobacco Use Types Packs/Day Years Used Date Smoking Tobacco: Never Assessed Comments Unknown Sex and Gender Information Value Date Recorded Sex Assigned at Not on file 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 Gender Identity Not on file Sexual Orientation Not on file documented as of this encounter Plan of Treatment Not on file documented as of this encounter Visit Diagnoses Not on filedocumented in this encounter Additional Health Concerns Infection Onset Date Last Indicated Resolved Time R/O COVID-19 04/28/2020 04/28/2020 04/28/2020 3:00 AM CDT R/O COVID-19 09/29/2020 09/29/2020 09/30/2020 12:2 3 AM WHIRLEY OPERATOR R/O COVID-19 02/11/2024 02/11/2024 02/11/2024 7:28 AM CDT documented as of this encounter Care Teams Migratory Game Bird Biologist Relationship Specialty [place] [address] [address] [place] [address] PCP - General Internal Medicine 02/26/24 documented as of this encounter
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
== END 2024-12-02 17:36 | disposition home or self-care (01) ==
PROVIDERS: Emergency Provider Family Medicine
DX: S39.012A Strain of muscle, fascia and tendon of lower back, initial encounter (principal); V64.5XXA Driver of heavy transport vehicle injured in collision with heavy transport vehicle or bus in traffic accident, initial encounter
CPT/HCPCS: 72100; 81025; 99283